=== PATIENT | female | born 1940 | race Native Hawaiian/Other Pacific Islander ===

== ENCOUNTER 2017-08-18 20:50 | Observation (INO) | payer MEDICARE, SELFPAY ==
[2017-08-18 21:04] VITALS: BP 102/60; PULSE 87; RESP 18; TEMP 39.3; O2SAT 93; BMI 25.8
--- NOTE | 2017-08-18 21:53 | DI.RAD.S_ITS ---
PROCEDURE: XR CHEST 1V INDICATIONS: fever TECHNIQUE: One view of the chest was acquired. COMPARISON: [facility], , CHEST 1 VIEW, 10/18/2012, 18:56. FINDINGS: Surgical changes and devices: None. Lungs and pleura: No pleural effusions or pneumothorax. Lungs are clear except for linear scar or atelectasis at the left base laterally.. Mediastinum: Mediastinal contours appear normal. Heart size is normal. Bones and chest wall: No suspicious bony lesions. Overlying soft tissues appear unremarkable. IMPRESSION: Left basilar atelectasis versus scar. Atelectasis can reflect pneumonia. Lungs otherwise clear with no additional consolidation. Dictated by: Chi Yan M.D. on 08/19/2017 at 7:46 Approved by: Chi Yan M.D. on 08/19/2017 at 7:47
--- NOTE | 2017-08-18 22:07 | DI.CT.S_ITS ---
PROCEDURE: CT HEAD/BRAIN WO CON INDICATIONS: fall w/ head strike and neck pain TECHNIQUE: Noncontrast 4.5 mm thick angled axial sections acquired from the foramen magnum to the vertex, with coronal and sagittal reformats. For radiation dose reduction, the following was used: automated exposure control, adjustment of mA and/or kV according to patient size. COMPARISON: None. FINDINGS: Preliminary report by make up editor radiology Image quality: Excellent. CSF spaces: Basal cisterns are patent. No extra-axial fluid collections. The ventricles are symmetric in size and shape. Brain: No intracranial bleeds or masses. There is cerebral volume loss for age, with resultant ventricular and sulcal prominence. There are periventricular and deep white matter chronic small vessel ischemic changes. There is intracranial internal carotid artery atherosclerosis. Skull and face: Calvarium and visualized facial bones appear intact, without suspicious lesions. Sinuses: Visualized sinuses and mastoids are clear. IMPRESSION: 1. No acute intracranial abnormality. 2. Age-related atrophy and chronic deep white matter ischemic changes. Findings are concordant with the preliminary report. Dictated by: Chi Yan M.D. on 08/19/2017 at 8:13 Approved by: Chi Yan M.D. on 08/19/2017 at 8:16
--- NOTE | 2017-08-18 22:07 | DI.CT.S_ITS ---
PROCEDURE: CT CERVICAL SPINE WO CON INDICATIONS: fall w/ head strike TECHNIQUE: Noncontrast 3 mm thick sections acquired from the skull base to the T4 level. Sagittal and coronal reformats were then constructed. For radiation dose reduction, the following was used: automated exposure control, adjustment of mA and/or kV according to patient size. COMPARISON: None. FINDINGS: Preliminary report by hourly shift radiology Image quality: Excellent. Bones: Straightening of cervical lordosis may be positional or related to muscle spasm. Slight anterolisthesis at C2-3. No fractures or dislocations. Visualized superior ribs are intact. Degenerative facet disease C1 to, right greater than left. Disc degeneration and spondylosis C4-5, C5-6 and C6-7. Soft tissues: Prevertebral soft tissues are normal in thickness. No paravertebral hematomas. No apical pneumothoraces. IMPRESSION: 1. Loss of cervical lordosis. 2. No fracture. Slight anterolisthesis C2-3. 3. Degenerative cervical disc disease, spondylosis and facet arthropathy. Findings are concordant with the preliminary report. Dictated by: Chi Yan M.D. on 08/19/2017 at 8:16 Approved by: Chi Yan M.D. on 08/19/2017 at 8:20
--- NOTE | 2017-08-18 22:07 | DI.CT.S_ITS ---
PROCEDURE: CT ABDOMEN PELVIS WO CON INDICATIONS: fever with flank pain and history of stones TECHNIQUE: Noncontrast 5 mm thick sections acquired from the diaphragms to the symphysis. 5 mm coronal and sagittal reformats were then performed. For radiation dose reduction, the following was used: automated exposure control, adjustment of mA and/or kV according to patient size. COMPARISON: [facility], CT, KIDNEY/ URETER/BLADDER, 02/16/2017, 10:43. FINDINGS: Image quality: Excellent. ABDOMEN: Lung bases: Lung bases are clear. Heart size is normal. Solid organs: Liver is normal in size. Gallbladder is contracted. Pancreas is normal in contours. Spleen is normal in size. No adrenal nodules. Bilateral nephrolithiasis again noted. The right kidney appears enlarged compared to prior exam and there is mild dilatation of the intrarenal collecting system. The right ureter appears normal in caliber and no calcified ureteral calculus seen. There is a small rounded calcification in the right hemipelvis that is unchanged from the previous exam. No stones seen within the urinary bladder. Peritoneum and bowel: Unenhanced bowel loops demonstrate normal wall thickness and caliber. No evidence of appendicitis. Colonic diverticulosis is again noted without CT evidence of diverticulitis. No free fluid or air. Nodes and vessels: No retroperitoneal or mesenteric adenopathy by size criteria. Aorta and inferior vena cava are normal in caliber. Miscellaneous: No ventral hernias. PELVIS: Genitourinary: Bladder wall thickness is normal. Uterus and adnexa are unremarkable. Miscellaneous: No inguinal hernias or adenopathy. Bones: No suspicious bony lesions. Disc degeneration L4-5 and L5-S1. No vertebral body compression fractures. IMPRESSION: 1. Exam is limited by absence of intravenous contrast. 2. Right kidney appears mildly enlarged and hydronephrotic without evidence of obstructing calculi. This could be a result of recently passed stone. With history of fever, possibility of pyelonephritis is suggested. 3. Colonic diverticulosis as before. 4. Bilateral nephrolithiasis. Findings are concordant with the preliminary report. Dictated by: Chi Yan M.D. on 08/19/2017 at 8:21 Approved by: Chi Yan M.D. on 08/19/2017 at 8:29
--- NOTE | 2017-08-18 22:38 | PC.NURSE ---
Attempted PIV placement, unsuccessful. Primary RN notified.
[2017-08-18] MEDS: SODIUM CHLORIDE 0.9% 1,000 ML 1000 ML IV (22:59)
[2017-08-18 23:08] VITALS: PULSE 66; O2SAT 93
[2017-08-18] MEDS: PIPERACILLIN-TAZO 4.5 GM/100 ML FROZ.PIGGY IV (23:24)
[2017-08-18 23:25] VITALS: TEMP 37
[2017-08-18 23:26] LABS: INR 1.2 (0.9-1.3); Prothrombin Time 12.8 SECONDS (10.1-12.7)
[2017-08-18 23:31] LABS: Add Manual Diff / Slide Review NO; Basophils Percent Auto 0.1 % (0-2); Eosinophils Percent Auto 0.1 % (2-4); Hematocrit 36.9 % (36-46); Hemoglobin 12.6 g/dL (12.0-16.0); Lymphocytes Percent Auto 7.2 % (25-40); Mean Corpuscular HGB Conc 34.1 % (30-36); Mean Corpuscular Hemoglobin 31.1 PG (26-34); Mean Corpuscular Volume 91.2 fL (80-100); Monocytes Percent Auto 6.2 % (3-14); Neutrophils Absolute Auto 11300 /uL (3000-5900); Neutrophils Percent Auto 86.4 % (50-75); Platelet Count 176 X10^3/uL (150-400); Red Blood Cell Count 4.05 X10^6/uL (4.0-5.2); Red Cell Distribution Width 13.9 % (11.6-14.8)
[2017-08-18 23:33] LABS: Lactate (Lactic Acid) 0.9 mmol/L (0.7-2.1)
[2017-08-18 23:35] LABS: Bilirubin Total 0.8 mg/dL (0.2-1.3); Blood Urea Nitrogen 17 mg/dL (7-17); Calcium 9.8 mg/dL (8.4-10.2); Carbon Dioxide 30 mmol/L (22-32); Chloride 94 mmol/L (98-107); Estimated Glomerular Filt Rate 54.2 mL/min (>60); Glucose 119 mg/dL (80-110); HEMOLYSIS < 15 (0-50); Lipase 15 U/L (23-300); Potassium 2.8 mmol/L (3.4-5.1); Sodium 133 mmol/L (137-145)
[2017-08-18 23:47] LABS: Troponin I < 0.012 ng/mL (0.01-0.034)
[2017-08-19] VITALS (9 sets, daily range): BP systolic 75–137; BP diastolic 49–95; PULSE 63–87; RESP 16–18; TEMP 36.6–38.2; O2SAT 93–98; BMI 27.1
--- NOTE | 2017-08-19 00:06 | PC.NURSE ---
L ac IV site appears to be infiltrated with small swelling, cool to touch and leaking IVF. Pt denies pain on the site.
[2017-08-19 00:07] LABS: Thyroid Stimulating Hormone 2.26 uIU/mL (0.47-4.68)
--- NOTE | 2017-08-19 00:08 | PC.NURSE ---
informed on pt's new c/o-chest pressure radiating to neck. EKG obtained and pt placed on cont security monitor-SR. New IV started and additional lab drawn and held at this time.
[2017-08-19 00:27] LABS: RBC Urine None Seen (0-5/HPF)
[2017-08-19 00:29] LABS: Bilirubin Urine UA NEGATIVE (NEGATIVE); Color Urine UA YELLOW; Glucose Urine UA NEGATIVE (Normal); Ketones Urine UA NEGATIVE (NEGATIVE); Leukocyte Esterase Urine UA 3+ (NEGATIVE); Nitrite Urine UA POSITIVE (Negative); Occult Blood Urine UA 1+ (Negative); Protein Urine UA NEGATIVE (Negative); Specific Gravity Urine UA <=1.005 (1.000-1.035); Urobilinogen Urine UA 0.2 E.U./dL (0.2)
[2017-08-19 00:31] LABS: Appearance Urine UA Slightly Cloudy
[2017-08-19 00:35] LABS: Squamous Epithelial Cell Urine 0-1 /HPF; WBC Urine 10-30/HPF (0-5/HPF)
[2017-08-19 00:36] LABS: Bacteria Urine Many (>30); Culture Indicated Urine Specimen Cultured
[2017-08-19] MEDS: POTASSIUM CHLORIDE 20 MEQ/15 ML UDC 40 MEQ PO (01:05)
[2017-08-19] MEDS: SODIUM CHLORIDE 0.9% 1,000 ML 1000 ML IV (01:12)
[2017-08-19 01:38] LABS: Lactate (Lactic Acid) 0.8 mmol/L (0.7-2.1)
[2017-08-19] MEDS: MAGNESIUM SULFATE 2 GM/50 ML PIGGYBACK IV (02:10)
[2017-08-19] MEDS: SODIUM CHLORIDE 0.9% 1,000 ML 125 ML IV ×2 (04:40→14:12)
[2017-08-19] MEDS: CEFTRIAXONE 1 GM/50 ML FROZ.PIGGY IV (05:52)
--- NOTE | 2017-08-19 07:57 | PC.NURSE ---
Report rec'd from LEATHA Meadows in ED at 0335. Pt arrived to unit via stretcher at 0400. Pt able to indep move from stretcher to bed. Denies chest pain, mild tolerable nausea. IVF started to left hand PIV. Pt given water, tolerating well. Temp 100.7F upon arrival to unit. Pt placed on Telemetry monitoring per order and continuous O2 monitoring. Pt A&OX4, drowsy, arousable and able to answer questions appropriately. C/O neck soreness, pt able to reposition self in bed and support with pillows. Left elbow purple bruise, small noted with laceration. High fall risk precautions in place, bed alarm on. Pt aware of safety precautions.
[2017-08-19] MEDS: CEFTRIAXONE 2 GM/50 ML FROZ.PIGGY IV (11:37)
--- NOTE | 2017-08-19 14:00 | P.HP_ITS ---
History of Present Illness Date Patient Seen: 08/19/17 Time Patient Seen: 13:49 Chief complaint: FEVER, FELL OFF TOILET , HIT HEAD Narrative: Patient is a 76-year-old white female patient of [facility] Newsome. Apparently with long history of kidney stones. Patient was in her usual state of health until Thursday when she developed a kidney stone which eventually passed. She usually is quite tired after this and she was feeling that way on Thursday but otherwise had been doing well. Since Thursday she went to work was feeling well much improved and then on Thursday just felt weak. Was starting to get some fevers and chills. No nausea or vomiting. No abdominal pain. No flank pain. Maybe was having some burning with urination but nothing significant. Extremities without cyanosis clubbing edema. Patient apparently was in the bathroom Thursday night or Thursday afternoon and was getting up off the toilet and had a syncopal episode. Thought she remembers almost everything. Did trip did not have any other changes. Had no headache visual symptoms chest pain shortness of breath palpitations or other change. Folded to the floor hitting her head and her right shoulder. Did not believe she lost consciousness. Contacted her son who eventually came and brought her to the hospital. She continued to have chills but no real other symptoms. Patient has a strong history of recurrent kidney stones which she has been dealing with for many years. Has had a history of previous UTIs. She now is having mostly right shoulder pain with no other significant changes. When patient got to the hospital she started having substernal chest discomfort with a burning that was almost choking her. Did not radiate. Was quite severe. Nothing seemed to make it better or worse. Resolved. No other significant change. Patient otherwise has had no significant new changes or complaints. Past medical history: Hypertension. Hyperlipidemia. Narcolepsy. Overactive bladder. History of neuropathy nondiabetic. History recurrent kidney stones. Hypercalcemia. History of vitamin-D deficiency. Past surgical history appendectomy. Allergies codeine Percocet Percodan Patient History Medical History HTN (hypertension) (Acute) Kidney stones (Acute) Smokeless tobacco use (Acute) Surgical History Hx of appendectomy (Acute) Hx of lithotripsy (Acute) Family & Social History Social History: household members none Prior Living Arrangements House Safety & Behavioral: Feels Safe in Current Yes Environment Been Physically Hurt or No Threatened By a Person Suicidal Ideation Description None Suicide Plan Description No Plan Tobacco & Substance use: Tobacco type cigarettes Smoking Status Current some day smoker alcohol intake never Substance Use Type does not use Meds Home Medications Medication Instructions Recorded Confirmed Type hydrochlorothiazide 25 mg PO QDAY #0 10/18/12 08/19/17 History lisinopril 10 mg PO DAILY 08/19/17 08/19/17 History oxybutynin chloride 5 mg PO BID 08/19/17 08/19/17 History Allergies Allergy/AdvReac Type Severity Reaction Status Date / Time codeine AdvReac Intermediate NAUSEA Verified 08/19/17 00:50 hydromorphone AdvReac Intermediate ITCHING Verified 08/19/17 00:50 oxycodone AdvReac Mild ITCHING Verified 08/19/17 00:50 Review of Systems Review of Systems All systems reviewed & are unremarkable except as noted in HPI and below Exam Vital Signs (past 8 hours): Vital Signs - 8 hr 3 08/19/17 08:00 08/19/17 12:49 Temperature 99.5 F 98.1 F Pulse Rate 72 66 Respiratory Rate 18 18 Blood Pressure 104/57 L 121/65 H Pulse Oximetry 96 96 Pulse Oximetry 96 Oxygen Delivery Method Room Air Narrative Exam Narrative: Alert elderly female in no acute distress I is unremarkable. Mucous membranes without oral abnormality slightly dry. Neck supple without adenopathy JVD or bruits. Lungs are clear. Heart regular rate and rhythm without murmurs clicks rubs or gallops. Chest wall is non tender. Abdomen is soft positive bowel sounds nontender. No flank tenderness. Extremities without cyanosis clubbing edema. Neurologic exam is nonfocal. Psychological exam she is interactive appropriate smiling intermittently if not mildly tired. Objective Imaging CT scan - abdomen: My impression: Slight hydronephrosis of the right kidney but otherwise unremarkable. ECG: No acute changes CT scan - head: My impression: Unremarkable no acute change Labs Result Diagrams: 08/18/17 23:10 08/18/17 23:10 Labs: Laboratory Results - last 24 hr 08/18/17 08/18/17 08/18/17 23:10 23:10 23:10 WBC 13.0 H RBC 4.05 Hgb 12.6 Hct 36.9 MCV 91.2 MCH 31.1 MCHC 34.1 RDW 13.9 Plt Count 176 Neut % (Auto) 86.4 H Lymph % (Auto) 7.2 L [place] % (Auto) 6.2 Eos % (Auto) 0.1 L Baso % (Auto) 0.1 Neut # (Auto) 81312 H PT 12.8 H INR 1.2 Sodium 133 L Potassium 2.8 L Chloride 94 L Carbon Dioxide 30 BUN 17 Creatinine 1.00 Estimated GFR 54.2 L BUN/Creatinine Ratio 17.0 Glucose 119 H Lactate Calcium 9.8 Total Bilirubin 0.8 Troponin I < 0.012 Lipase 15 L Procalcitonin TSH Urine Color Urine Appearance Urine pH Ur Specific [place] Urine Protein Urine Glucose (UA) Urine Ketones Urine Occult Blood Urine Nitrate Urine Bilirubin Urine Urobilinogen Ur Leukocyte Esterase Urine RBC Urine WBC Ur Squamous Epith Cells Urine Bacteria Ur Culture Indicated? Micro UA Comment 08/18/17 08/18/17 08/18/17 23:10 23:10 23:10 WBC RBC Hgb Hct MCV MCH MCHC RDW Plt Count Neut % (Auto) Lymph % (Auto) [place] % (Auto) Eos % (Auto) Baso % (Auto) Neut # (Auto) PT INR Sodium Potassium Chloride Carbon Dioxide BUN Creatinine Estimated GFR BUN/Creatinine Ratio Glucose Lactate 0.9 Calcium Total Bilirubin Troponin I Lipase Procalcitonin 1.90 H TSH 2.26 Urine Color Urine Appearance Urine pH Ur Specific [place] Urine Protein Urine Glucose (UA) Urine Ketones Urine Occult Blood Urine Nitrate Urine Bilirubin Urine Urobilinogen Ur Leukocyte Esterase Urine RBC Urine WBC Ur Squamous Epith Cells Urine Bacteria Ur Culture Indicated? Micro UA Comment 08/19/17 08/19/17 00:18 01:17 WBC RBC Hgb Hct MCV MCH MCHC RDW Plt Count Neut % (Auto) Lymph % (Auto) [place] % (Auto) Eos % (Auto) Baso % (Auto) Neut # (Auto) PT INR Sodium Potassium Chloride Carbon Dioxide BUN Creatinine Estimated GFR BUN/Creatinine Ratio Glucose Lactate 0.8 Calcium Total Bilirubin Troponin I Lipase Procalcitonin TSH Urine Color Yellow Urine Appearance Slightly cloudy Urine pH 6.0 Ur Specific [place] <=1.005 Urine Protein Negative Urine Glucose (UA) Negative Urine Ketones Negative Urine Occult Blood 1+ H Urine Nitrate Positive H Urine Bilirubin Negative Urine Urobilinogen 0.2 Ur Leukocyte Esterase 3+ H Urine RBC None seen Urine WBC 10-30/hpf H Ur Squamous Epith Cells 0-1 /hpf Urine Bacteria Many (>30) H Ur Culture Indicated? Specimen cultured Micro UA Comment Not Reportable Assessment & Plan Plan: Assessment/Plan Narrative: Pyelonephritis. Mildly elevated prolactin. We will repeat now. Elevated white count but feeling better. At this point will continue Rocephin and re- evaluate in a.m.. May be able to go home tomorrow depending on how she feels. Chest pain. Probably GI. Negative troponin negative CPK and EKG unremarkable at this point my recommendation will be to add pantoprazole and see how she does. Dehydration mild. Slow hydration. Re-evaluate in a.m.. Syncopal episode. Probable vasovagal. Certainly doubt seizures or other abnormality. Will follow. CT of head was negative. Hypertension. Stable continue usual medicines. Hyperlipidemia. No treatment at this time. Hypokalemia. Will replace. Recheck a.m. DVT prophylaxis on Lovenox. GI prophylaxis on pantoprazole. Disposition. Overall appears stable. We will see how she does. Re-evaluate in a.m.. May be able to go home depending on how she feels. Quality VTE Deep Vein Thrombosis/Pulmonary Embolism Present on Admission: No
[2017-08-19 14:25] LABS: Add Manual Diff / Slide Review NO; Basophils Percent Auto 0.2 % (0-2); Eosinophils Percent Auto 0.2 % (2-4); Hematocrit 34.5 % (36-46); Hemoglobin 11.8 g/dL (12.0-16.0); Lymphocytes Percent Auto 6.6 % (25-40); Mean Corpuscular HGB Conc 34.3 % (30-36); Mean Corpuscular Hemoglobin 31.5 PG (26-34); Mean Corpuscular Volume 91.8 fL (80-100); Monocytes Percent Auto 5.9 % (3-14); Neutrophils Absolute Auto 7900 /uL (3000-5900); Neutrophils Percent Auto 87.1 % (50-75); Platelet Count 133 X10^3/uL (150-400); Red Blood Cell Count 3.76 X10^6/uL (4.0-5.2); Red Cell Distribution Width 13.9 % (11.6-14.8)
--- NOTE | 2017-08-19 14:39 | CM.DANOTE ---
DCP Assessment: Pt is a 76 yo female, resident of [place]. Pt is under obs for Pyelonephritis. Pt's PCP is BRADY Newsome, Insurance is Medicare/AARP. Reviewed chart. 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 Pt expects to return home, transportation likely via her son. No expected barriers to safe DC home when medically cleared. Following closely for any DC needs or concerns that might arise. ANNE Esteves
[2017-08-19] MEDS: SODIUM CHLORIDE 0.45% 1,000 ML 100 ML IV (14:44)
[2017-08-19] MEDS: POTASSIUM CHLORIDE 20 MEQ TAB 40 MEQ PO ×2 (14:47→18:32)
[2017-08-19] MEDS: ENOXAPARIN 40 MG/0.4 ML SYRINGE SUBCUT (14:47)
[2017-08-19] MEDS: PANTOPRAZOLE 20 MG TABLET PO (14:48)
[2017-08-19] MEDS: hydroCHLOROthiazide 25 MG TABLET PO (14:48)
[2017-08-19 15:09] LABS: Blood Urea Nitrogen 12 mg/dL (7-17); Calcium 8.7 mg/dL (8.4-10.2); Carbon Dioxide 27 mmol/L (22-32); Chloride 102 mmol/L (98-107); Estimated Glomerular Filt Rate > 60.0 mL/min (>60); Glucose 138 mg/dL (80-110); HEMOLYSIS < 15 (0-50); Potassium 2.9 mmol/L (3.4-5.1); Sodium 139 mmol/L (137-145)
[2017-08-19 15:14] LABS: Prolactin 5.9 ng/mL (3.0-18.6)
[2017-08-19] MEDS: OXYBUTYNIN 5 MG TABLET PO (21:21)
[2017-08-19] MEDS: ACETAMINOPHEN 325 MG TABLET 650 MG PO (22:39)
[2017-08-20] VITALS (7 sets, daily range): BP systolic 109–134; BP diastolic 49–81; PULSE 48–60; RESP 12–18; TEMP 36.4–36.8; O2SAT 93–98
[2017-08-20] MEDS: SODIUM CHLORIDE 0.45% 1,000 ML 100 ML IV (01:44)
[2017-08-20] MEDS: ACETAMINOPHEN 325 MG TABLET 650 MG PO ×4 (04:38→22:00)
--- NOTE | 2017-08-20 05:51 | ED.FEVER ---
HPI - Fever General Chief Complaint: Fever Stated Complaint: FEVER, FELL OFF TOILET , HIT HEAD Time Seen by Provider: 08/18/17 21:52 History of Present Illness HPI Narrative: HPI 76-year-old female with history of recurrent ureterolithiasis (reportedly requiring prior stents, lithotripsy, and percutaneous drains) presents with poorly characterize flank pain, fever, and weakness; patient attempted to stand from the toilet, had a presyncopal or syncopal period and regained consciousness as she was falling and struck the side of her head and endorses mild ongoing pain. Also endorses a cough of 2 to 3 days duration. M/S/F/SocHx notable for: please see HPI; remainder reviewed with patient and in chart. ROS: Negative constitutional, eye, cardiovascular, pulmonary, GI, , MSK, skin, neurologic, psychiatric, endocrine unless noted in the HPI. Exam Gen: pleasant, uncomfortable appearing, not in extremis, non-toxic appearance.. HEENT: NC, AT, PEERL, EOMI, neck supple. Resp: Clear to auscultation bilaterally, normal work of breathing, no accessory muscle usage. Card: Regular rate and rhythm with no murmurs, rubs, or gallops, extremities warm and well perfused. GI: Non-tender to palpation throughout all quadrants, no focal tenderness at McBurney's point, negative Loera's sign, non-distended, no rebound or guarding. : mild right CVA tenderness percussion, no left CVA terms percussion, no suprapubic tenderness to percussion. MSK: No visible deformities, strength and tone without visually appreciable deficit. Skin: Normal color, no petechiae, buttocks without pressure ulcers, palms and soles visually normal, no further visible lesions. Neuro: AOx3, no facial asymmetry, vision and hearing WNL. Psych: Mood and affect appropriate. Labs / Imaging (pertinent): WBC 13.0, Hb 12.6, PLT 176, PT/INR 1.2, Na 133, K 2.8, Bilirubin 0.8, Lactate 0.9, lactic (repeat) 0.8, troponin <0.012, lipase 15, procalcitonin 1.90. UA: negative bacteria, negative nitrites, negative leukocyte esterase, 0 squamous epithelial cells. CXR: questionable left lower lobe infiltrate, radiologist read pending. EKG: SR at [address]-segment elevations or depressions, T-wave inversions or new LBBB. CT head: no acute intracranial abnormalities. CT C-spine: no evidence of fracture or subluxation. CT abdomen/pelvis: right renal pelviciectasis possibly minimal hydronephrosis and perinephric stranding, can be seen with recent passage of calculus right kidney. Small nonvisualized versus non-opaque calculus or other processes such as acute pyelonephritis entirely excluded. Bilateral nephrolithiasis. Colonic diverticulosis. MDM Previous chart, nursing note, labs, imaging, and vitals reviewed. A: 76-year-old female with history of recurrent ureterolithiasis (reportedly requiring prior stents, lithotripsy, and percutaneous drains) presents with poorly characterize flank pain, fever, and weakness; patient attempted to stand from the toilet, had a presyncopal or syncopal period and regained consciousness as she was falling and struck the side of her head and endorses mild ongoing pain. Evaluation: Patient meets CMS sepsis screening guidelines. Infectious Source: * Pulmonary: possible left lower lobe infiltrate. However this is tentative at the present time. * Urine: UA consistent with infection, given history of stones a CT was obtained, this is consistent with pyelonephritis. Suspect this is the cause of the patient's fever and fluid responsive hypotension. * Skin: Consider a cutaneous source unlikely given absence of significant infection appreciated on exam. * ICE SKATING INSTRUCTOR: Doubt given the lack of meningismus, petechia, and the overall clinical presentation. * Abdomen: Doubt given the non-tender abdomen and an alternate source. * Spine: Given the absence of back pain and an alternate source further investigation for possible epidural abscess, spinal osteomyelitis, or discitis are not currently warranted. * Lines: Patient without indwelling lines/ports. Resuscitation: * Blood cultures, 30 cc/kg NS fluid bolus, and Zosyn ordered with the initial evaluation. * P.o. potassium and IV magnesium given. Disposition: admitted for further care. Impression: pyelonephritis, sepsis, hypokalemia (please reference below for remainder of encounter information) Critical Care Time Organ system(s): Cardiopulmonary, vascular, ICE SKATING INSTRUCTOR, Renal Intervention: Assessment of the patient, interpretation of studies, communication related to patient care. Time: 30 minutes were spent directly related to patient care exclusive of separately billed procedures The patient is also without evidence of pancreatitis (lipase within clinically acceptable limits), adrenal insufficiency is tentatively considered unlikely as there is no evidence of chronic steroid use, no known adrenal insufficiency and the patient has been without refractory hypotension. Thyroid disease was considered, given the absence of known thyroid disease or goiter on exam, and a tentatively explaining etiology for the patient?s presentation further investigation is not currently indicated. Ingestion/OD are felt to be unlikely given history, absence of significant mydriasis, and lack of appreciated clonus or hyperreflexia, as well as an alternate explaining etiology.The possibility of alcohol, benzodiazepine, opiate withdrawal were considered and while history is limited at this point these do not appear to be contributing. Related Data Home Medications Medication Instructions Recorded Confirmed hydrochlorothiazide 25 mg PO QDAY #0 10/18/12 08/19/17 lisinopril 10 mg PO DAILY 08/19/17 08/19/17 oxybutynin chloride 5 mg PO BID 08/19/17 08/19/17 Allergies Allergy/AdvReac Type Severity Reaction Status Date / Time codeine AdvReac Intermediate NAUSEA Verified 08/19/17 00:50 hydromorphone AdvReac Intermediate ITCHING Verified 08/19/17 00:50 oxycodone AdvReac Mild ITCHING Verified 08/19/17 00:50 [facility] Medical History HTN (hypertension) (Acute) Kidney stones (Acute) Smokeless tobacco use (Acute) Surgical History Hx of appendectomy (Acute) Hx of lithotripsy (Acute) Social History household members: none Smoking Status: Current some day smoker alcohol intake: never Exam Initial Vital Signs Initial Vital Signs: Vital Signs Temperature 102.7 F H 08/18/17 21:04 Pulse Rate 87 08/18/17 21:04 Respiratory Rate 18 08/18/17 21:04 Blood Pressure 102/60 08/18/17 21:04 Pulse Oximetry 93 08/18/17 21:04 Course Orders Ordered: Acetaminophen (Tylenol) 650 mg PO Q6HR PRN PRN Reason: As Needed for Fever/Mild Pain Last Admin: 08/20/17 04:38 Dose: 650 mg Admin: 08/19/17 22:39 Dose: 650 mg Enoxaparin Sodium (Lovenox) 40 mg SUBCUT DAILY [facility] Last Admin: 08/19/17 14:47 Dose: 40 mg Hydrochlorothiazide (Hydrochlorothiazide) 25 mg PO DAILY [facility] Last Admin: 08/19/17 14:48 Dose: 25 mg Ceftriaxone Sodium/Dextrose (Rocephin) 2 gm in 50 mls @ 100 mls/hr IV Q24H [facility] Last Infusion: 08/19/17 12:20 Dose: 100 mls/hr Admin: 08/19/17 11:37 Dose: 100 mls/hr Sodium Chloride (Normal Saline 0.45%) 1,000 mls @ 100 mls/hr IV CONT MARTHA Last Admin: 08/20/17 01:44 Dose: 100 mls/hr Infusion: 08/20/17 00:44 Dose: 100 mls/hr Admin: 08/19/17 14:44 Dose: 100 mls/hr Lisinopril (Zestril) 10 mg PO DAILY MARTHA Oxybutynin (Ditropan) 5 mg PO BID [facility] Last Admin: 08/19/17 21:21 Dose: 5 mg Potassium Chloride (Klor-Con M20) 40 meq PO BIDWM MARTHA Last Admin: 08/19/17 18:32 Dose: 40 meq Admin: 08/19/17 14:47 Dose: 40 meq Discontinued Medications Piperacillin/Tazobactam/Dextrose (Zosyn) 4.5 gm in 100 mls @ 200 mls/hr IV NOW ONE Stop: 08/18/17 22:22 Last Infusion: 08/19/17 00:50 Dose: 0 mls/hr Admin: 08/18/17 23:24 Dose: 200 mls/hr Sodium Chloride (Normal Saline 0.9%) 2,177.25 mls @ 725.75 mls/hr 30 ml/kg infuse over 3 hr (2177.25 ml) IV CONT MARTHA Last Admin: 08/18/17 22:57 Dose: Sodium Chloride (Normal Saline 0.9%) 1,000 mls @ 1,000 mls/hr IV BOLUS ONE Stop: 08/18/17 23:56 Last Infusion: 08/19/17 01:05 Dose: 0 mls/hr Admin: 08/18/17 22:59 Dose: 1,000 mls/hr Magnesium Sulfate (Magnesium Sulfate) 2 gm in 50 mls @ 25 mls/hr IV NOW ONE Stop: 08/19/17 02:32 Last Infusion: 08/19/17 07:00 Dose: 25 mls/hr Infusion: 08/19/17 02:10 Dose: 25 mls/hr Admin: 08/19/17 02:10 Dose: 25 mls/hr Sodium Chloride (Normal Saline 0.9%) 1,000 mls @ 1,000 mls/hr IV BOLUS ONE Stop: 08/19/17 02:06 Last Infusion: 08/19/17 03:53 Dose: 25 mls/hr Admin: 08/19/17 01:12 Dose: 1,000 mls/hr Sodium Chloride (Normal Saline 0.9%) 500 mls @ 1,000 mls/hr IV BOLUS ONE Stop: 08/19/17 01:36 Last Admin: 08/19/17 04:30 Dose: Not Given Ceftriaxone Sodium/Dextrose (Rocephin) 1 gm in 50 mls @ 100 mls/hr IV Q12HR MARTHA Stop: 08/19/17 07:59 Last Infusion: 08/19/17 06:29 Dose: 100 mls/hr Admin: 08/19/17 05:52 Dose: 100 mls/hr Sodium Chloride (Normal Saline 0.9%) 1,000 mls @ 125 mls/hr IV CONT MARTHA Last Infusion: 08/19/17 14:42 Dose: 125 mls/hr Admin: 08/19/17 14:12 Dose: 125 mls/hr Infusion: 08/19/17 12:40 Dose: 125 mls/hr Admin: 08/19/17 04:40 Dose: 125 mls/hr Pantoprazole Sodium (Protonix) 20 mg PO NOW ONE Stop: 08/19/17 13:48 Last Admin: 08/19/17 14:48 Dose: 20 mg Potassium Chloride (Potassium Chloride) 40 meq PO NOW ONE Stop: 08/19/17 00:34 Last Admin: 08/19/17 01:05 Dose: 40 meq Vital Signs - 8 hr 08/19/17 23:43 08/20/17 02:30 08/20/17 04:52 Temperature 97.8 F 97.6 F Pulse Rate 64 60 Respiratory Rate 18 18 Blood Pressure 137/57 H 132/81 H Pulse Oximetry 95 95 96 MDM - Fever Lab Data Result diagrams: 08/19/17 14:13 08/19/17 14:13 Lab Results 08/18/17 08/18/17 08/18/17 Range/Units 23:10 23:10 23:10 WBC 13.0 H (4.5-11.0) X10^3/uL RBC 4.05 (4.0-5.2) X10^6/uL Hgb 12.6 (12.0-16.0) g/dL Hct 36.9 (36-46) % MCV 91.2 (80-100) fL MCH 31.1 (26-34) PG MCHC 34.1 (30-36) % RDW 13.9 (11.6-14.8) % Plt Count 176 (150-400) X10^3/uL Neut % (Auto) 86.4 H (50-75) % Lymph % (Auto) 7.2 L (25-40) % [place] % (Auto) 6.2 (3-14) % Eos % (Auto) 0.1 L (2-4) % Baso % (Auto) 0.1 (0-2) % Neut # (Auto) 87457 H (4508-1596) /uL PT 12.8 H (10.1-12.7) SECONDS INR 1.2 (0.9-1.3) Sodium 133 L (137-145) mmol/L Potassium 2.8 L (3.4-5.1) mmol/L Chloride 94 L (98-107) mmol/L Carbon Dioxide 30 (22-32) mmol/L BUN 17 (7-17) mg/dL Creatinine 1.00 (0.52-1.04) mg/dL Estimated GFR 54.2 L (>60) mL/min BUN/Creatinine Ratio 17.0 (6-22) Glucose 119 H (80-110) mg/dL Lactate (0.7-2.1) mmol/L Calcium 9.8 (8.4-10.2) mg/dL Total Bilirubin 0.8 (0.2-1.3) mg/dL Troponin I < 0.012 (0.01-0.034) ng/mL Lipase 15 L (23-300) U/L Procalcitonin (<0.5) ng/mL TSH (0.47-4.68) uIU/mL Prolactin (3.0-18.6) ng/mL Urine Color Urine Appearance Urine pH (4.5-8.0) Ur Specific [place] (1.000-1.035) Urine Protein (Negative) Urine Glucose (UA) (Normal) g/dL Urine Ketones (NEGATIVE) Urine Occult Blood (Negative) Urine Nitrate (Negative) Urine Bilirubin (NEGATIVE) Urine Urobilinogen (0.2) E.U./dL Ur Leukocyte Esterase (NEGATIVE) Urine RBC (0-5/HPF) Urine WBC (0-5/HPF) Ur Squamous Epith Cells Urine Bacteria (None) Ur Culture Indicated? Micro UA Comment 08/18/17 08/18/17 08/18/17 Range/Units 23:10 23:10 23:10 WBC (4.5-11.0) X10^3/uL RBC (4.0-5.2) X10^6/uL Hgb (12.0-16.0) g/dL Hct (36-46) % MCV (80-100) fL MCH (26-34) PG MCHC (30-36) % RDW (11.6-14.8) % Plt Count (150-400) X10^3/uL Neut % (Auto) (50-75) % Lymph % (Auto) (25-40) % [place] % (Auto) (3-14) % Eos % (Auto) (2-4) % Baso % (Auto) (0-2) % Neut # (Auto) (9995-0183) /uL PT (10.1-12.7) SECONDS INR (0.9-1.3) Sodium (137-145) mmol/L Potassium (3.4-5.1) mmol/L Chloride (98-107) mmol/L Carbon Dioxide (22-32) mmol/L BUN (7-17) mg/dL Creatinine (0.52-1.04) mg/dL Estimated GFR (>60) mL/min BUN/Creatinine Ratio (6-22) Glucose (80-110) mg/dL Lactate 0.9 (0.7-2.1) mmol/L Calcium (8.4-10.2) mg/dL Total Bilirubin (0.2-1.3) mg/dL Troponin I (0.01-0.034) ng/mL Lipase (23-300) U/L Procalcitonin 1.90 H (<0.5) ng/mL TSH 2.26 (0.47-4.68) uIU/mL Prolactin (3.0-18.6) ng/mL Urine Color Urine Appearance Urine pH (4.5-8.0) Ur Specific [place] (1.000-1.035) Urine Protein (Negative) Urine Glucose (UA) (Normal) g/dL Urine Ketones (NEGATIVE) Urine Occult Blood (Negative) Urine Nitrate (Negative) Urine Bilirubin (NEGATIVE) Urine Urobilinogen (0.2) E.U./dL Ur Leukocyte Esterase (NEGATIVE) Urine RBC (0-5/HPF) Urine WBC (0-5/HPF) Ur Squamous Epith Cells Urine Bacteria (None) Ur Culture Indicated? Micro UA Comment 08/19/17 08/19/17 08/19/17 Range/Units 00:18 01:17 14:13 WBC 9.0 (4.5-11.0) X10^3/uL RBC 3.76 L (4.0-5.2) X10^6/uL Hgb 11.8 L (12.0-16.0) g/dL Hct 34.5 L (36-46) % MCV 91.8 (80-100) fL MCH 31.5 (26-34) PG MCHC 34.3 (30-36) % RDW 13.9 (11.6-14.8) % Plt Count 133 L (150-400) X10^3/uL Neut % (Auto) 87.1 H (50-75) % Lymph % (Auto) 6.6 L (25-40) % [place] % (Auto) 5.9 (3-14) % Eos % (Auto) 0.2 L (2-4) % Baso % (Auto) 0.2 (0-2) % Neut # (Auto) 7900 H (1549-1508) /uL PT (10.1-12.7) SECONDS INR (0.9-1.3) Sodium (137-145) mmol/L Potassium (3.4-5.1) mmol/L Chloride (98-107) mmol/L Carbon Dioxide (22-32) mmol/L BUN (7-17) mg/dL Creatinine (0.52-1.04) mg/dL Estimated GFR (>60) mL/min BUN/Creatinine Ratio (6-22) Glucose (80-110) mg/dL Lactate 0.8 (0.7-2.1) mmol/L Calcium (8.4-10.2) mg/dL Total Bilirubin (0.2-1.3) mg/dL Troponin I (0.01-0.034) ng/mL Lipase (23-300) U/L Procalcitonin (<0.5) ng/mL TSH (0.47-4.68) uIU/mL Prolactin (3.0-18.6) ng/mL Urine Color Yellow Urine Appearance Slightly cloudy Urine pH 6.0 (4.5-8.0) Ur Specific [place] <=1.005 (1.000-1.035) Urine Protein Negative (Negative) Urine Glucose (UA) Negative (Normal) g/dL Urine Ketones Negative (NEGATIVE) Urine Occult Blood 1+ H (Negative) Urine Nitrate Positive H (Negative) Urine Bilirubin Negative (NEGATIVE) Urine Urobilinogen 0.2 (0.2) E.U./dL Ur Leukocyte Esterase 3+ H (NEGATIVE) Urine RBC None seen (0-5/HPF) Urine WBC 10-30/hpf H (0-5/HPF) Ur Squamous Epith Cells 0-1 /hpf Urine Bacteria Many (>30) H (None) Ur Culture Indicated? Specimen cultured Micro UA Comment Not Reportable 08/19/17 08/19/17 Range/Units 14:13 14:13 WBC (4.5-11.0) X10^3/uL RBC (4.0-5.2) X10^6/uL Hgb (12.0-16.0) g/dL Hct (36-46) % MCV (80-100) fL MCH (26-34) PG MCHC (30-36) % RDW (11.6-14.8) % Plt Count (150-400) X10^3/uL Neut % (Auto) (50-75) % Lymph % (Auto) (25-40) % [place] % (Auto) (3-14) % Eos % (Auto) (2-4) % Baso % (Auto) (0-2) % Neut # (Auto) (4817-5280) /uL PT (10.1-12.7) SECONDS INR (0.9-1.3) Sodium 139 (137-145) mmol/L Potassium 2.9 L (3.4-5.1) mmol/L Chloride 102 (98-107) mmol/L Carbon Dioxide 27 (22-32) mmol/L BUN 12 (7-17) mg/dL Creatinine 0.80 (0.52-1.04) mg/dL Estimated GFR > 60.0 (>60) mL/min BUN/Creatinine Ratio 15.0 (6-22) Glucose 138 H (80-110) mg/dL Lactate (0.7-2.1) mmol/L Calcium 8.7 (8.4-10.2) mg/dL Total Bilirubin (0.2-1.3) mg/dL Troponin I (0.01-0.034) ng/mL Lipase (23-300) U/L Procalcitonin (<0.5) ng/mL TSH (0.47-4.68) uIU/mL Prolactin 5.9 (3.0-18.6) ng/mL Urine Color Urine Appearance Urine pH (4.5-8.0) Ur Specific [place] (1.000-1.035) Urine Protein (Negative) Urine Glucose (UA) (Normal) g/dL Urine Ketones (NEGATIVE) Urine Occult Blood (Negative) Urine Nitrate (Negative) Urine Bilirubin (NEGATIVE) Urine Urobilinogen (0.2) E.U./dL Ur Leukocyte Esterase (NEGATIVE) Urine RBC (0-5/HPF) Urine WBC (0-5/HPF) Ur Squamous Epith Cells Urine Bacteria (None) Ur Culture Indicated? Micro UA Comment Discharge Plan Departure Patient Disposition: Admitted as Observation Clinical Impression: Acute UTI Discharge Date/Time: 08/19/17 03:53 Interventions: ED Discharge Assessment Last Done: 08/19/17 03:53 Admit Date/Time: 08/19/17 03:26 Admit Provider: Yolande Hopson
[2017-08-20] MEDS: OXYBUTYNIN 5 MG TABLET PO ×2 (08:43→22:00)
[2017-08-20] MEDS: hydroCHLOROthiazide 25 MG TABLET PO (08:43)
[2017-08-20] MEDS: POTASSIUM CHLORIDE 20 MEQ TAB 40 MEQ PO ×2 (08:43→16:25)
[2017-08-20] MEDS: ENOXAPARIN 40 MG/0.4 ML SYRINGE SUBCUT (08:44)
--- NOTE | 2017-08-20 09:05 | P.PN_ITS ---
Subjective Date Patient Seen: 08/20/17 Time Patient Seen: 09:01 Interval history: Patient is ready to go home. She feels quite certain that everything is better and well enough that she can travel home. Denies any pain or breathing problems appetite has been okay has been up to the bathroom and back without problems. Exam Vital Signs (past 8 hours): Vital Signs - 8 hr 3 08/20/17 02:30 08/20/17 04:52 08/20/17 08:02 Temperature 97.6 F 98 F Pulse Rate 60 48 L Respiratory Rate 18 12 Blood Pressure 132/81 H 109/49 L Pulse Oximetry 95 96 96 3 08/20/17 08:46 Temperature Pulse Rate 48 L Respiratory Rate Blood Pressure 109/49 L Pulse Oximetry Pulse Oximetry 96 Oxygen Delivery Method Room Air Oxygen Flow Rate 0 Narrative Exam Narrative: No obvious distress HEENT unremarkable neck is thad a no CVA tenderness bdomen soft nontender nondistended normoactive bowel tones no organomegaly or mass , chest is clear heart regular without murmur extremities benign. Neurologically normal. Objective Labs Result Diagrams: 08/19/17 14:13 08/19/17 14:13 Labs: Laboratory Results - last 24 hr 08/19/17 08/19/17 08/19/17 14:13 14:13 14:13 WBC 9.0 RBC 3.76 L Hgb 11.8 L Hct 34.5 L MCV 91.8 MCH 31.5 MCHC 34.3 RDW 13.9 Plt Count 133 L Neut % (Auto) 87.1 H Lymph % (Auto) 6.6 L [place] % (Auto) 5.9 Eos % (Auto) 0.2 L Baso % (Auto) 0.2 Neut # (Auto) 7900 H Sodium 139 Potassium 2.9 L Chloride 102 Carbon Dioxide 27 BUN 12 Creatinine 0.80 Estimated GFR > 60.0 BUN/Creatinine Ratio 15.0 Glucose 138 H Calcium 8.7 Prolactin 5.9 Assessment & Plan (1) Hypokalemia: Problem details: Found on admission but not responding readily to oral high replacement. Question of possible low magnesium will check that although she did receive a dose of magnesium in the ER without a lab confirmation. Home meds do include both hydrochlorothiazide and lisinopril, both of which might contribute to this problem. Current visit: Yes Status: Acute (2) Renal lithiasis: Problem details: Recent episode with history of same. No current symptoms. Current visit: Yes Status: Acute (3) Syncope and collapse: Problem details: By report of patient not clear that she lost consciousness but did have injuries that have been evaluated. No evidence of bony injuries and symptoms have improved. Current visit: Yes Status: Acute (4) Volume depletion: Problem details: Largely resolved at this time. Probably mild to begin with. Current visit: Yes Status: Acute (5) Urinary tract infection: Problem details: Found on admission not a lot of clear symptoms it seems. Current visit: Yes Status: Acute (6) Chest pain: Problem details: Thought to be more GI in source cardiac cause largely ruled out. Current visit: Yes Status: Acute (7) Hypertension: Problem details: Historically currently well controlled. Current visit: Yes Status: Acute (8) Hyperlipidemia: Problem details: Historically Current visit: Yes Status: Acute Plan: Assessment/Plan Narrative: Regret that she is really not ready to go home just yet. Will have a lab check magnesium level on spec this morning, will add an IV K rider this morning recheck labs with magnesium in the morning. Will supplement magnesium if the level comes back is low. Encourage up and around today no promises but did suggest that she very likely could go home tomorrow. Quality VTE Deep Vein Thrombosis/Pulmonary Embolism Present on Admission: No
[2017-08-20] MEDS: CEFTRIAXONE 2 GM/50 ML FROZ.PIGGY IV (10:39)
--- NOTE | 2017-08-20 10:42 | CM.DPC ---
DCP Cont: Met w/pt this morning, explained SW role. Pt very eager to leave the hospital and has no stated barriers to safe DC home w/family to transport home. This NURS[employer] SCHOOL TEACHER stayed in room while Dr Chacko came for his visit; it's the plan for pt to remain in the hospital today and tonight, at least according to this morning visit. Potassium and Magnesium levels are Dr Chacko's greates concern today, see prog note for detail. Pt a little frustrated and reiterates she would like to go home. Alexus Childs, ANNE
[2017-08-20] MEDS: POTASSIUM CHLORIDE IN WATER 40 MEQ/400 ML PIGGYBACK 100 MEQ IV (11:16)
[2017-08-20] MEDS: cefUROXime 250 MG TABLET 500 MG PO ×2 (12:14→22:00)
--- NOTE | 2017-08-20 22:57 | PC.NURSE ---
Evening Shift Note A&O, VSS, 98% RA. Pain managed w/ Tylenol. Using call light appropriately, bed alarm on, up w/ SBA. Dc tomorrow if labs WNL.
[2017-08-21 03:06] VITALS: O2SAT 93
[2017-08-21 06:32] LABS: Add Manual Diff / Slide Review NO; Basophils Percent Auto 0.4 % (0-2); Eosinophils Percent Auto 0.6 % (2-4); Hematocrit 37.1 % (36-46); Hemoglobin 12.9 g/dL (12.0-16.0); Lymphocytes Percent Auto 8.7 % (25-40); Mean Corpuscular HGB Conc 34.7 % (30-36); Mean Corpuscular Hemoglobin 31.6 PG (26-34); Monocytes Percent Auto 10.5 % (3-14); Neutrophils Absolute Auto 6700 /uL (3000-5900); Neutrophils Percent Auto 79.8 % (50-75); Platelet Count 189 X10^3/uL (150-400); Red Blood Cell Count 4.08 X10^6/uL (4.0-5.2); Red Cell Distribution Width 13.8 % (11.6-14.8); White Blood Cell Count 8.4 X10^3/uL (4.5-11.0)
[2017-08-21 06:38] LABS: BUN Creatinine Ratio 16.3 (6-22); Blood Urea Nitrogen 13 mg/dL (7-17); Calcium 9.2 mg/dL (8.4-10.2); Carbon Dioxide 28 mmol/L (22-32); Chloride 103 mmol/L (98-107); Estimated Glomerular Filt Rate > 60.0 mL/min (>60); Glucose 117 mg/dL (80-110); HEMOLYSIS < 15 (0-50); Magnesium 1.9 mg/dL (1.6-2.3); Potassium 3.4 mmol/L (3.4-5.1); Sodium 140 mmol/L (137-145)
[2017-08-21 07:35] VITALS: O2SAT 97
[2017-08-21] MEDS: OXYBUTYNIN 5 MG TABLET PO (08:02)
[2017-08-21] MEDS: LISINOPRIL 10 MG TABLET PO (08:02)
[2017-08-21] MEDS: hydroCHLOROthiazide 25 MG TABLET PO (08:02)
[2017-08-21] MEDS: cefUROXime 250 MG TABLET 500 MG PO (08:02)
[2017-08-21] MEDS: POTASSIUM CHLORIDE 20 MEQ TAB 40 MEQ PO (08:02)
[2017-08-21] MEDS: ENOXAPARIN 40 MG/0.4 ML SYRINGE SUBCUT (08:03)
[2017-08-21 08:15] VITALS: BP 130/76; PULSE 65; RESP 18; TEMP 36.5; O2SAT 95
--- NOTE | 2017-08-21 08:26 | PM.DS.1 ---
History of Present Illness Chief complaint: FEVER, FELL OFF TOILET , HIT HEAD Narrative: Patient is a 76-year-old white female patient of Gloria Newsome. Apparently with long history of kidney stones. Patient was in her usual state of health until Thursday when she developed a kidney stone which eventually passed. She usually is quite tired after this and she was feeling that way on Thursday but otherwise had been doing well. Since Thursday she went to work was feeling well much improved and then on Thursday just felt weak. Was starting to get some fevers and chills. No nausea or vomiting. No abdominal pain. No flank pain. Maybe was having some burning with urination but nothing significant. Extremities without cyanosis clubbing edema. Patient apparently was in the bathroom Thursday night or Thursday afternoon and was getting up off the toilet and had a syncopal episode. Thought she remembers almost everything. Did trip did not have any other changes. Had no headache visual symptoms chest pain shortness of breath palpitations or other change. Folded to the floor hitting her head and her right shoulder. Did not believe she lost consciousness. Contacted her son who eventually came and brought her to the hospital. She continued to have chills but no real other symptoms. Patient has a strong history of recurrent kidney stones which she has been dealing with for many years. Has had a history of previous UTIs. She now is having mostly right shoulder pain with no other significant changes. When patient got to the hospital she started having substernal chest discomfort with a burning that was almost choking her. Did not radiate. Was quite severe. Nothing seemed to make it better or worse. Resolved. No other significant change. Patient otherwise has had no significant new changes or complaints. Past medical history: Hypertension. Hyperlipidemia. Narcolepsy. Overactive bladder. History of neuropathy nondiabetic. History recurrent kidney stones. Hypercalcemia. History of vitamin-D deficiency. Past surgical history appendectomy. Allergies codeine Percocet Percodan Discharge Providers Date of admission: 08/19/17 03:26 Primary care physician: BRADY Portillo Consults: 08/19/17 02:41 Consult to Physician Routine Comment: Consulting Provider: Yolande Hopson Reason for consultation: uti, sepsis Has provider been notified: Yes Discharge provider: Ray Power MD Summary Discharge Diagnosis: Hypokalemia Renal lithiasis Pyelonephritis Syncope Right shoulder pain Dehydration Chest pain noncardiac Hypertension Hospital Course: Pyelonephritis. Patient was admitted and begun on Rocephin. 24 hr later was feeling much better. White count was down. Unstable. Feeling remarkably better. Cultures were growing gram-negative bacillus but had not been definitively identified. Will go home on Ceftin since she has been doing well on that and follow up with Dr. Parsons are [place] he can adjust medication as needed. Hypokalemia. Patient was admitted and found to have a low potassium. She was replaced orally and did well. She will home on 7 days of medication be followed as an outpatient with repeat BMP on day of follow-up. Syncopal episode. [place] to be secondary to combination of pyelonephritis dehydration and vasovagal episode. CT of the head was negative on admission cervical spine evaluation was negative and no further workup needs to be done. We followed as an outpatient. Chest pain noncardiac. Negative EKG normal labs stable throughout. Probably GI in nature. Will be followed as outpatient. Dehydration. Mild to moderate. Fluid hydration 0 IV over the 1st 24 hr. Feeling much better. Will go home and be followed from there. Hypertension. Was stable. We will follow. No change in medication. Right shoulder pain status post fall. Much improved on today. Probably muscular. Probably contusion. No further workup will need to be done as long as her shoulder completely resolves normalizes. Really minimal findings on exam. History of kidney stones recurrent. Will need to get set back up with urologist. Will allow follow-up appointment to have set up with Dr. Parsons or C diff. Status at Discharge Functional status at discharge: independent ambulation Overall status at discharge: patient is progressing back to baseline Exam Vital Signs (past 8 hours): Vital Signs - 8 hr 08/21/17 03:06 Pulse Oximetry 93 Pulse Oximetry 93 Oxygen Delivery Method Room Air Oxygen Flow Rate 0 Narrative Exam Narrative: Alert elderly female lying in bed no acute distress HEENT exam unremarkable. Mucous membranes moist. Neck supple without adenopathy JVD or bruits. Full range of motion. She has got some slight tenderness in the right upper back. Much improved from previous exam. Shoulder is unremarkable. Lungs are clear. Heart regular rate and rhythm. No flank pain. Abdomen is soft positive bowel sounds nontender. Extremities without cyanosis clubbing edema. Neurologic exam is unremarkable. Patient is alert smiling and interactive without issues. Objective Labs Result Diagrams: 08/21/17 05:52 08/21/17 05:52 Labs: Laboratory Results - last 24 hr 08/19/17 08/21/17 08/21/17 14:15 05:52 05:52 WBC 8.4 RBC 4.08 Hgb 12.9 Hct 37.1 MCV 91.0 MCH 31.6 MCHC 34.7 RDW 13.8 Plt Count 189 Neut % (Auto) 79.8 H Lymph % (Auto) 8.7 L Rains % (Auto) 10.5 Eos % (Auto) 0.6 L Baso % (Auto) 0.4 Neut # (Auto) 6700 H Sodium 140 Potassium 3.4 Chloride 103 Carbon Dioxide 28 BUN 13 Creatinine 0.80 Estimated GFR > 60.0 BUN/Creatinine Ratio 16.3 Glucose 117 H Calcium 9.2 Magnesium 2.0 1.9 Discharge Plan Discharge Plan Patient Disposition: Home, Self-Care Provider Discharge Instructions Diet: Diet as Tolerated Activity: as tolerated Wound Care Report to your healthcare provider any signs of infection, such as:: chills, fever and increased pain Discharge Data Primary Care Provider: Alexus Thurston Attending Provider: Adonay Tamez Admmoni Date/Time: 08/19/17 03:26 Quality VTE Deep Vein Thrombosis/Pulmonary Embolism Present on Admission: No
--- NOTE | 2017-08-21 09:06 | PC.NURSE ---
PT REPORTS SHE IS STILL LIGHTLY WEAK BUT RETURNING TO BASELINE. PT REQUESTS TO D/C TO HOME. IN FOR ROUNDING D/C TO HOME ORDERED.
--- NOTE | 2017-08-21 12:02 | CM.DPNOTE ---
DC Note: Pt has been DC home today and feels very eager to leave. Met w/pt briefly, she denies needs. Pt's family will call at 1130 to see if they need to head towards the hospital [place] [facility] LEATHA Luna has no concerns about pt's DC home today. FAISAL
== END 2017-08-21 11:15 | disposition home or self-care (01) ==
LOC: ED 08-19 03:08 → AC 08-19 03:27
PROVIDERS: Family Medicine; Admitting Provider Internal Medicine; Emergency Provider Emergency Medicine; Family Provider Nurse Practitioner Family; PCP Nurse Practitioner Family; Visit Provider Family Medicine
DX: E87.6 Hypokalemia (principal); N20.0 Calculus of kidney; R55 Syncope and collapse; N39.0 Urinary tract infection, site not specified; R07.9 Chest pain, unspecified; I10 Essential (primary) hypertension; E78.5 Hyperlipidemia, unspecified; R50.9 Fever, unspecified; N12 Tubulo-interstitial nephritis, not specified as acute or chronic; E86.0 Dehydration; W18.12XA Fall from or off toilet with subsequent striking against object, initial encounter
CPT/HCPCS: 36415; 36591; 36592; 70450; 71045; 72125; 74176; 80048; 81001; 82247; 83605; 83690; 83735; 84145; 84146; 84443; 84484; 85025; 85610; 87040; 87077; 87086; 87186; 93005; 93010; 96365; 96366; 96367; 99285; G0378; J0696; J1650; J2543; J7050

== ENCOUNTER 2017-10-12 11:19 | Emergency (ER) | payer MEDICARE, SELFPAY ==
[2017-08-19 04:11] VITALS: BMI 27.1
[2017-10-12] VITALS (21 sets, daily range): BP systolic 76–164; BP diastolic 43–72; PULSE 95–131; RESP 17–38; TEMP 36.3–39.9; O2SAT 89–97
--- NOTE | 2017-10-12 12:09 | ED.NAVMDI ---
HPI - Nausea/Vomiting/Diarrhea <BRADY Martinez - Last Filed: 10/12/17 22:20> General Chief complaint: Nausea/Vomiting/Diarrhea Stated complaint: STATES PASSING KIDNEY STONES Time Seen by Provider: 10/12/17 12:09 Source: patient Mode of arrival: ambulatory Limitations: no limitations History of Present Illness HPI Narrative: 76-year-old female with history of nephrolithiasis here for complaint of having bilateral lower abdominal pain and lower back pain. She is concerned she may be passing a stone. She also reports having nausea and vomiting. All her symptoms started last night. She denies any fevers or chills. She reports last bowel movement was last night and was unremarkable. She denies any urinary symptoms. Decreased p.o. intake due to nausea and vomiting. She reports having several episodes of vomiting today. She denies any trauma to the abdomen. She is ambulatory into the emergency room. No other concerns or complaints. MD complaint: nausea, vomiting and abdominal pain Related Data Home Medications Medication Instructions Recorded Confirmed hydrochlorothiazide 25 mg PO QDAY #0 10/18/12 10/12/17 oxybutynin chloride 5 mg PO BID 08/19/17 10/12/17 amlodipine 5 mg PO DAILY 10/12/17 10/12/17 hydrocodone-acetaminophen 1 tab PO Q4H PRN 10/12/17 10/12/17 lisinopril 20 mg PO DAILY 10/12/17 10/12/17 tamsulosin 0.4 mg PO DAILY 10/12/17 10/12/17 Allergies Allergy/AdvReac Type Severity Reaction Status Date / Time codeine AdvReac Intermediate NAUSEA Verified 08/19/17 00:50 hydromorphone AdvReac Intermediate ITCHING Verified 08/19/17 00:50 oxycodone AdvReac Mild ITCHING Verified 08/19/17 00:50 Review of Systems <BRADY Martinez - Last Filed: 10/12/17 22:20> Constitutional Denies chills, Denies fever(s), Denies lethargy and Denies weakness Eyes Denies change in vision, Denies eye discharge, Denies irritation and Denies loss of vision ENT Ears, Nose, Mouth, and Throat: Denies change in voice, Denies neck pain and Denies sore throat Cardiovascular Denies chest pain, Denies irregular heart rhythm, Denies lightheadedness, Denies palpitations, Denies dyspnea, Denies dyspnea on exertion and Denies orthopnea Respiratory Denies cough, Denies dyspnea, Denies dyspnea on exertion and Denies wheezing Gastrointestinal Gastrointestinal: Reports abdominal pain, Reports nausea and Reports vomiting Genitourinary Denies hematuria, Denies flank pain, Denies urinary incontinence and Denies urinary urgency Musculoskeletal Denies neck pain Integumentary/Breasts Denies pruritus, Denies erythema, Denies rash and Denies wounds Neurologic Denies confusion, Denies loss of vision and Denies weakness Psychiatric Denies anxiety, Denies confusion, Denies depression, Denies homicidal ideation and Denies suicidal ideation Endocrine Denies palpitations Hematologic/Lymphatic Denies easy bruising Allergic/Immunologic Denies wheezing Exam <BRADY Martinez - Last Filed: 10/12/17 22:20> Initial Vital Signs Initial Vital Signs: Vital Signs Temperature 97.4 F L 10/12/17 11:22 Pulse Rate 117 H 10/12/17 11:22 Respiratory Rate 30 H 10/12/17 11:22 Blood Pressure 140/70 H 10/12/17 11:22 Pulse Oximetry 96 10/12/17 11:22 Const General: cooperative and well developed Nutritional Appearance: well nourished Orientation: alert, awake, oriented x3 and not confused [facility] Mouth: oral mucosae normal and moist mucous membranes Eyes Conjunctivae: conjunctivae normal Sclera: sclerae normal Pupils: PERRL EOM: EOM intact bilaterally Resp Effort & Inspection: normal respiratory effort, able to speak in complete sentences, no respiratory distress and no use of accessory muscles Auscultation: clear to auscultation bilaterally, no rales, no rhonchi and no wheezes Cardio Rate: regular rate Rhythm: regular rhythm Heart Sounds: no click, no gallops, no murmurs and no rubs Pulses: normal peripheral pulses GI Inspection: non-distended Palpation: soft, no hepatosplenomegaly, No guarding, No pulsatile mass and tender (Tender bilateral lower abdomen) Auscultation: normal bowel sounds General: No CVA tenderness Skin General: no rashes or lesions noted, No jaundice and No petechiae Neuro General: alert, oriented x3, gait normal and no focal motor deficits Speech: speech normal <Yadira Medley DO - Last Filed: 10/13/17 06:39> Initial Vital Signs Initial Vital Signs: Vital Signs Temperature 97.4 F L 10/12/17 11:22 Pulse Rate 117 H 10/12/17 11:22 Respiratory Rate 30 H 10/12/17 11:22 Blood Pressure 140/70 H 10/12/17 11:22 Pulse Oximetry 96 10/12/17 11:22 Course <BRADY Martinez - Last Filed: 10/12/17 22:20> Orders Ordered: ED Orders 10/13/17 14:14 Gram Stain Pos BC Stat Discontinued Medications Acetaminophen (Tylenol) 975 mg PO NOW ONE Stop: 10/12/17 20:50 Last Admin: 10/12/17 21:13 Dose: 975 mg Hydromorphone HCl (Dilaudid) 0.5 mg IV NOW ONE Stop: 10/12/17 20:12 Last Admin: 10/12/17 20:13 Dose: 0.5 mg Sodium Chloride (Normal Saline 0.9%) 1,000 mls @ 1,000 mls/hr IV BOLUS ONE Stop: 10/12/17 13:17 Last Infusion: 10/12/17 15:11 Dose: 0 mls/hr Admin: 10/12/17 13:08 Dose: 1,000 mls/hr Sodium Chloride (Normal Saline 0.9%) 1,000 mls @ 1,000 mls/hr IV BOLUS ONE Stop: 10/12/17 14:56 Last Infusion: 10/12/17 15:12 Dose: 0 mls/hr Admin: 10/12/17 14:00 Dose: 1,000 mls/hr Ceftriaxone Sodium/Dextrose (Rocephin) 2 gm in 50 mls @ 100 mls/hr IV NOW ONE Stop: 10/12/17 16:17 Last Infusion: 10/12/17 16:34 Dose: 0 mls/hr Admin: 10/12/17 15:59 Dose: 100 mls/hr Lactated Ringer's (Lactated Ringers) 500 mls @ 1,000 mls/hr IV BOLUS ONE Stop: 10/12/17 16:18 Last Admin: 10/12/17 18:56 Dose: Not Given Lactated Ringer's (Lactated Ringers) 1,000 mls @ 150 mls/hr IV CONT MARTHA Last Infusion: 08/13/18 18:54 Dose: 0 mls/hr Infusion: 10/12/17 17:40 Dose: 1,000 mls/hr Admin: 10/12/17 15:53 Dose: 150 mls/hr Lactated Ringer's (Lactated Ringers) 1,000 mls @ 200 mls/hr IV CONT MARTHA Last Infusion: 10/12/17 21:28 Dose: 200 mls/hr Admin: 10/12/17 17:40 Dose: 200 mls/hr Ondansetron HCl (Zofran) 4 mg IV NOW ONE Stop: 10/12/17 12:19 Last Admin: 10/12/17 13:08 Dose: 4 mg Ondansetron HCl (Zofran) 4 mg IV NOW ONE Stop: 10/12/17 21:25 Last Admin: 10/12/17 21:28 Dose: 4 mg Potassium Chloride (Klor-Con M20) 40 meq PO NOW ONE Stop: 10/12/17 14:19 Last Admin: 10/12/17 15:37 Dose: 40 meq Tamsulosin HCl (Flomax) 0.4 mg PO NOW ONE Stop: 10/12/17 14:44 Last Admin: 10/12/17 15:37 Dose: 0.4 mg Vital Signs - 8 hr 10/12/17 15:00 10/12/17 15:10 10/12/17 15:14 Temperature Pulse Rate 101 H 99 H 101 H Respiratory Rate 19 27 H 17 Blood Pressure [Left Arm] 85/72 L 80/55 L 83/55 L Pulse Oximetry 96 95 95 10/12/17 15:30 10/12/17 16:00 10/12/17 16:20 Temperature Pulse Rate 103 H 101 H 100 H Respiratory Rate 29 H 32 H 32 H Blood Pressure [Left Arm] 78/43 L 85/51 L 88/56 L Pulse Oximetry 92 95 10/12/17 16:30 10/12/17 16:40 10/12/17 17:12 Temperature Pulse Rate 104 H 102 H 100 H Respiratory Rate 30 H 32 H 30 H Blood Pressure [Left Arm] 88/56 L 89/54 L 77/49 L Pulse Oximetry 97 10/12/17 17:37 10/12/17 19:36 10/12/17 20:41 Temperature 103.9 F H Pulse Rate 100 H 99 H 131 H Respiratory Rate 38 H 23 32 H Blood Pressure [Left Arm] 88/54 L 90/71 164/69 H Pulse Oximetry 94 97 96 10/12/17 21:13 Temperature 103.5 F H Pulse Rate Respiratory Rate Blood Pressure [Left Arm] Pulse Oximetry <Yadira Medley, - Last Filed: 10/13/17 06:39> Orders Ordered: ED Orders 10/13/17 14:14 Gram Stain Pos BC Stat Discontinued Medications Acetaminophen (Tylenol) 975 mg PO NOW ONE Stop: 10/12/17 20:50 Last Admin: 10/12/17 21:13 Dose: 975 mg Hydromorphone HCl (Dilaudid) 0.5 mg IV NOW ONE Stop: 10/12/17 20:12 Last Admin: 10/12/17 20:13 Dose: 0.5 mg Sodium Chloride (Normal Saline 0.9%) 1,000 mls @ 1,000 mls/hr IV BOLUS ONE Stop: 10/12/17 13:17 Last Infusion: 10/12/17 15:11 Dose: 0 mls/hr Admin: 10/12/17 13:08 Dose: 1,000 mls/hr Sodium Chloride (Normal Saline 0.9%) 1,000 mls @ 1,000 mls/hr IV BOLUS ONE Stop: 10/12/17 14:56 Last Infusion: 10/12/17 15:12 Dose: 0 mls/hr Admin: 10/12/17 14:00 Dose: 1,000 mls/hr Ceftriaxone Sodium/Dextrose (Rocephin) 2 gm in 50 mls @ 100 mls/hr IV NOW ONE Stop: 10/12/17 16:17 Last Infusion: 10/12/17 16:34 Dose: 0 mls/hr Admin: 10/12/17 15:59 Dose: 100 mls/hr Lactated Ringer's (Lactated Ringers) 500 mls @ 1,000 mls/hr IV BOLUS ONE Stop: 10/12/17 16:18 Last Admin: 10/12/17 18:56 Dose: Not Given Lactated Ringer's (Lactated Ringers) 1,000 mls @ 150 mls/hr IV CONT MARTHA Last Infusion: 10/12/17 18:54 Dose: 0 mls/hr Infusion: 10/12/17 17:40 Dose: 1,000 mls/hr Admin: 10/12/17 15:53 Dose: 150 mls/hr Lactated Ringer's (Lactated Ringers) 1,000 mls @ 200 mls/hr IV CONT MARTHA Last Infusion: 10/12/17 21:28 Dose: 200 mls/hr Admin: 10/12/17 17:40 Dose: 200 mls/hr Ondansetron HCl (Zofran) 4 mg IV NOW ONE Stop: 10/12/17 12:19 Last Admin: 10/12/17 13:08 Dose: 4 mg Ondansetron HCl (Zofran) 4 mg IV NOW ONE Stop: 10/12/17 21:25 Last Admin: 10/12/17 21:28 Dose: 4 mg Potassium Chloride (Klor-Con M20) 40 meq PO NOW ONE Stop: 10/12/17 14:19 Last Admin: 10/12/17 15:37 Dose: 40 meq Tamsulosin HCl (Flomax) 0.4 mg PO NOW ONE Stop: 10/12/17 14:44 Last Admin: 10/12/17 15:37 Dose: 0.4 mg Vital Signs - 8 hr 10/12/17 15:00 10/12/17 15:10 10/12/17 15:14 Temperature Pulse Rate 101 H 99 H 101 H Respiratory Rate 19 27 H 17 Blood Pressure [Left Arm] 85/72 L 80/55 L 83/55 L Pulse Oximetry 96 95 95 10/12/17 15:30 10/12/17 16:00 10/12/17 16:20 Temperature Pulse Rate 103 H 101 H 100 H Respiratory Rate 29 H 32 H 32 H Blood Pressure [Left Arm] 78/43 L 85/51 L 88/56 L Pulse Oximetry 92 95 10/12/17 16:30 10/12/17 16:40 10/12/17 17:12 Temperature Pulse Rate 104 H 102 H 100 H Respiratory Rate 30 H 32 H 30 H Blood Pressure [Left Arm] 88/56 L 89/54 L 77/49 L Pulse Oximetry 97 10/12/17 17:37 10/12/17 19:36 10/12/17 20:41 Temperature 103.9 F H Pulse Rate 100 H 99 H 131 H Respiratory Rate 38 H 23 32 H Blood Pressure [Left Arm] 88/54 L 90/71 164/69 H Pulse Oximetry 94 97 96 10/12/17 21:13 Temperature 103.5 F H Pulse Rate Respiratory Rate Blood Pressure [Left Arm] Pulse Oximetry MDM - Nausea/Vomiting/Diarrhea <BRADY Martinez - Last Filed: 10/12/17 22:20> Lab Data Result diagrams: 10/12/17 12:10 10/12/17 12:10 Lab Results 10/12/17 10/12/17 10/12/17 Range/Units 12:10 12:10 14:14 WBC 4.7 (4.5-11.0) X10^3/uL RBC 4.78 (4.0-5.2) X10^6/uL Hgb 15.1 (12.0-16.0) g/dL Hct 43.8 (36-46) % MCV 91.6 (80-100) fL MCH 31.7 (26-34) PG MCHC 34.6 (30-36) % RDW 13.7 (11.6-14.8) % Plt Count 201 (150-400) X10^3/uL Neut % (Auto) 94.6 H (50-75) % Lymph % (Auto) 4.5 L (25-40) % [place] % (Auto) 0.7 L (3-14) % Eos % (Auto) 0.1 L (2-4) % Baso % (Auto) 0.1 (0-2) % Neut # (Auto) 4500 (9102-8940) /uL Sodium 141 (137-145) mmol/L Potassium 2.8 L (3.4-5.1) mmol/L Chloride 101 (98-107) mmol/L Carbon Dioxide 23 (22-32) mmol/L BUN 14 (7-17) mg/dL Creatinine 1.30 H (0.52-1.04) mg/dL Estimated GFR 40.0 L (>60) mL/min BUN/Creatinine Ratio 10.8 (6-22) Glucose 145 H (80-110) mg/dL Lactate (0.7-2.1) mmol/L Calcium 9.4 (8.4-10.2) mg/dL Total Bilirubin 1.2 (0.2-1.3) mg/dL AST 36 (14-36) IU/L ALT 19 (9-52) IU/L Alkaline Phosphatase 102 (38-126) U/L Total Protein 7.1 (6.3-8.2) g/dL Albumin 4.0 (3.5-5.0) g/dL Globulin 3.1 (1.7-4.1) g/dL Albumin/Globulin Ratio 1.3 (1.0-2.8) Lipase 25 (23-300) U/L Procalcitonin 16.57 H (<0.5) ng/mL A. baumannii (PCR) (Not Detect) Malini albicans (PCR) (Not Detect) C. glabrata (PCR) (Not Detect) C. krusei (PCR) (Not Detect) C. parapsilosis (PCR) (Not Detect) C. tropicalis (PCR) (Not Detect) Enterobacteriac sp PCR (Not Detect) E. cloacae complex PCR (Not Detect) Enterococcus sp PCR (Not Detect) E. coli (PCR) (Not Detect) H. influenzae (PCR) (Not Detect) Klebsiella oxytoca PCR (Not Detect) Klebsiella pneumoniae (Not Detect) List. monocytogenes PCR (Not Detect) N. meningitidis (PCR) (Not Detect) Proteus species (PCR) (Not Detect) Serratia marcescens PCR (Not Detect) Staphylococcus sp PCR (Not Detect) Staph aureus (PCR) (Not Detect) mecA-Methicil Res Gene (Not Detect) Streptococcus sp PCR (Not Detect) Group A Strep (PCR) (Not Detect) Strep agalactiae (PCR) (Not Detect) Strep pneumoniae (PCR) (Not Detect) P. aeruginosa (PCR) (Not Detect) Erik/B-Vanco Res Genes KPC-Carbap Res Gene PCR (Not Detect) 10/12/17 10/12/17 10/13/17 Range/Units 14:14 18:27 14:14 WBC (4.5-11.0) X10^3/uL RBC (4.0-5.2) X10^6/uL Hgb (12.0-16.0) g/dL Hct (36-46) % MCV (80-100) fL MCH (26-34) PG MCHC (30-36) % RDW (11.6-14.8) % Plt Count (150-400) X10^3/uL Neut % (Auto) (50-75) % Lymph % (Auto) (25-40) % [place] % (Auto) (3-14) % Eos % (Auto) (2-4) % Baso % (Auto) (0-2) % Neut # (Auto) (7174-7296) /uL Sodium (137-145) mmol/L Potassium (3.4-5.1) mmol/L Chloride (98-107) mmol/L Carbon Dioxide (22-32) mmol/L BUN (7-17) mg/dL Creatinine (0.52-1.04) mg/dL Estimated GFR (>60) mL/min BUN/Creatinine Ratio (6-22) Glucose (80-110) mg/dL Lactate 5.3 H 4.7 H (0.7-2.1) mmol/L Calcium (8.4-10.2) mg/dL Total Bilirubin (0.2-1.3) mg/dL AST (14-36) IU/L ALT (9-52) IU/L Alkaline Phosphatase (38-126) U/L Total Protein (6.3-8.2) g/dL Albumin (3.5-5.0) g/dL Globulin (1.7-4.1) g/dL Albumin/Globulin Ratio (1.0-2.8) Lipase (23-300) U/L Procalcitonin (<0.5) ng/mL A. baumannii (PCR) Not detected (Not Detect) Malini albicans (PCR) Not detected (Not Detect) C. glabrata (PCR) Not detected (Not Detect) C. krusei (PCR) Not detected (Not Detect) C. parapsilosis (PCR) Not detected (Not Detect) C. tropicalis (PCR) Not detected (Not Detect) Enterobacteriac sp PCR Detected H (Not Detect) E. cloacae complex PCR Not detected (Not Detect) Enterococcus sp PCR Not detected (Not Detect) E. coli (PCR) Detected H (Not Detect) H. influenzae (PCR) Not detected (Not Detect) Klebsiella oxytoca PCR Not detected (Not Detect) Klebsiella pneumoniae Not detected (Not Detect) List. monocytogenes PCR Not detected (Not Detect) N. meningitidis (PCR) Not detected (Not Detect) Proteus species (PCR) Not detected (Not Detect) Serratia marcescens PCR Not detected (Not Detect) Staphylococcus sp PCR Not detected (Not Detect) Staph aureus (PCR) Not detected (Not Detect) mecA-Methicil Res Gene Not detected (Not Detect) Streptococcus sp PCR Not detected (Not Detect) Group A Strep (PCR) Not detected (Not Detect) Strep agalactiae (PCR) Not detected (Not Detect) Strep pneumoniae (PCR) Not detected (Not Detect) P. aeruginosa (PCR) Not detected (Not Detect) Erik/B-Vanco Res Genes Not Reportable KPC-Carbap Res Gene PCR Not detected (Not Detect) Imaging Data CT scan - chest: Radiologist's impression: Patient: [place] MR#: [id number] : 1940 Acct:[id number] Age/Sex: 76 / F Date of Service: 10/12/17 Loc: ED Accession Number: [id number] Procedure: XR chest 1V Ordering Provider: Randy Blue PROCEDURE: XR CHEST 1V INDICATIONS: Decreased blood pressure TECHNIQUE: One view of the chest was acquired. COMPARISON: [facility], CR, XR CHEST 1V, 08/18/2017, 22:03. FINDINGS: Surgical changes and devices: None. Lungs and pleura: No pleural effusions or pneumothorax. Lungs are clear except for minimal scar or atelectasis at the left base projecting through the diaphragm. Mediastinum: Mediastinal contours appear normal. Heart size is normal. Bones and chest wall: No suspicious bony lesions. Overlying soft tissues appear unremarkable. IMPRESSION: Minimal left basilar scar or atelectasis again noted, otherwise no acute cardiopulmonary abnormality is seen CT scan - abdomen: Radiologist's impression: PROCEDURE: CT KIDNEY URETER BLADDER (KUB) INDICATIONS: Bilateral lower abdominal pain TECHNIQUE: Noncontrast 5 mm thick sections acquired from the diaphragms to the symphysis. 5 mm thick coronal and sagittal reformats were then performed. For radiation dose reduction, the following was used: automated exposure control, adjustment of mA and/or kV according to patient size. COMPARISON: [facility], CT, CT ABDOMEN PELVIS WO CON, 08/18/2017, 22:43. FINDINGS: Image quality: Excellent. Lung bases: Bibasilar atelectasis. Heart size is normal. Urinary system: Bilateral nephrolithiasis is again noted. There is moderate left perinephric fat stranding that is new. Left hydronephrosis is present with dilatation of the ureter proximal to a obstructing 6 mm stone, attenuation 1039, located within the proximal left ureter at the L5 level. There is also mild right hydronephrosis secondary to an obstructing 5 mm stone in the proximal ureter at the L4 level. There is also a 6 mm stone in the left posterior urinary bladder not present previously. Other solid organs: Liver is normal in size. Gallbladder appears normal. Pancreas is normal in contours. Spleen is normal in size. No adrenal nodules. Peritoneum and bowel: Unenhanced bowel loops demonstrate normal wall thickness and caliber. Mild uncomplicated colonic diverticulosis. Appendix is not seen. No free fluid or air. Nodes and vessels: No retroperitoneal or mesenteric adenopathy by size criteria. Aorta and inferior vena cava are normal in caliber. Abdominal wall: No ventral hernias. Pelvis: No free pelvic fluid. No inguinal hernias or adenopathy. Bones: No suspicious bony lesions. No vertebral body compression fractures. IMPRESSION: 1. Bilateral nephrolithiasis. 2. Bilateral hydroureteronephrosis secondary to stones in the proximal ureters. Left perinephric fat stranding is evident. 3. Calcification in the dependent bladder compatible with recently passed stone. Dictated by: Chi Yan M.D. on 10/12/2017 at 13:42 Approved by: Chi Yan M.D. on 10/12/2017 at 14:01 MDM Narrative Medical decision making narrative: CT of the abdomen was obtained and shows a bilateral obstructing stone to the proximal ureters with hydronephrosis bilaterally. Initial vital signs showed that she was tachycardic at 130 with blood pressure 140/70. Shortly later that she developed a blood pressure of 70s over 40s with heart rate dropping down to 100. Initial CBC showed negative white count. Chem panel shows a decreased GFR of 40 and elevated creatinine of 1.3. I was unable to obtain urinalysis as patient was not able to provide urine. Lactate and procalcitonin were ordered which resulted in a lactate of 5.3 and procalcitonin of 16.5. Shortly after these results she was prescribed 2 g of Rocephin of IV. She was given a 30 mL per kg of fluids. blood cultures are pending. Discussed case with Urology at [facility] who recommended the patient be transferred to another facility and ICU placement and nephrostomy. however they did not have any rooms available. Discussed case with [facility] who accepted patient to ICU DR. Bermudez. Patient transferred to [facility] via ALS. <Yadira Medley, DO - Last Filed: 10/13/17 06:39> Lab Data Lab Results 10/12/17 10/12/17 10/12/17 Range/Units 12:10 12:10 14:14 WBC 4.7 (4.5-11.0) X10^3/uL RBC 4.78 (4.0-5.2) X10^6/uL Hgb 15.1 (12.0-16.0) g/dL Hct 43.8 (36-46) % MCV 91.6 (80-100) fL MCH 31.7 (26-34) PG MCHC 34.6 (30-36) % RDW 13.7 (11.6-14.8) % Plt Count 201 (150-400) X10^3/uL Neut % (Auto) 94.6 H (50-75) % Lymph % (Auto) 4.5 L (25-40) % [place] % (Auto) 0.7 L (3-14) % Eos % (Auto) 0.1 L (2-4) % Baso % (Auto) 0.1 (0-2) % Neut # (Auto) 4500 (8589-6234) /uL Sodium 141 (137-145) mmol/L Potassium 2.8 L (3.4-5.1) mmol/L Chloride 101 (98-107) mmol/L Carbon Dioxide 23 (22-32) mmol/L BUN 14 (7-17) mg/dL Creatinine 1.30 H (0.52-1.04) mg/dL Estimated GFR 40.0 L (>60) mL/min BUN/Creatinine Ratio 10.8 (6-22) Glucose 145 H (80-110) mg/dL Lactate (0.7-2.1) mmol/L Calcium 9.4 (8.4-10.2) mg/dL Total Bilirubin 1.2 (0.2-1.3) mg/dL AST 36 (14-36) IU/L ALT 19 (9-52) IU/L Alkaline Phosphatase 102 (38-126) U/L Total Protein 7.1 (6.3-8.2) g/dL Albumin 4.0 (3.5-5.0) g/dL Globulin 3.1 (1.7-4.1) g/dL Albumin/Globulin Ratio 1.3 (1.0-2.8) Lipase 25 (23-300) U/L Procalcitonin 16.57 H (<0.5) ng/mL A. baumannii (PCR) (Not Detect) Malini albicans (PCR) (Not Detect) C. glabrata (PCR) (Not Detect) C. krusei (PCR) (Not Detect) C. parapsilosis (PCR) (Not Detect) C. tropicalis (PCR) (Not Detect) Enterobacteriac sp PCR (Not Detect) E. cloacae complex PCR (Not Detect) Enterococcus sp PCR (Not Detect) E. coli (PCR) (Not Detect) H. influenzae (PCR) (Not Detect) Klebsiella oxytoca PCR (Not Detect) Klebsiella pneumoniae (Not Detect) List. monocytogenes PCR (Not Detect) N. meningitidis (PCR) (Not Detect) Proteus species (PCR) (Not Detect) Serratia marcescens PCR (Not Detect) Staphylococcus sp PCR (Not Detect) Staph aureus (PCR) (Not Detect) mecA-Methicil Res Gene (Not Detect) Streptococcus sp PCR (Not Detect) Group A Strep (PCR) (Not Detect) Strep agalactiae (PCR) (Not Detect) Strep pneumoniae (PCR) (Not Detect) P. aeruginosa (PCR) (Not Detect) Erik/B-Vanco Res Genes KPC-Carbap Res Gene PCR (Not Detect) 10/12/17 10/12/17 10/13/17 Range/Units 14:14 18:27 14:14 WBC (4.5-11.0) X10^3/uL RBC (4.0-5.2) X10^6/uL Hgb (12.0-16.0) g/dL Hct (36-46) % MCV (80-100) fL MCH (26-34) PG MCHC (30-36) % RDW (11.6-14.8) % Plt Count (150-400) X10^3/uL Neut % (Auto) (50-75) % Lymph % (Auto) (25-40) % [place] % (Auto) (3-14) % Eos % (Auto) (2-4) % Baso % (Auto) (0-2) % Neut # (Auto) (3994-9421) /uL Sodium (137-145) mmol/L Potassium (3.4-5.1) mmol/L Chloride (98-107) mmol/L Carbon Dioxide (22-32) mmol/L BUN (7-17) mg/dL Creatinine (0.52-1.04) mg/dL Estimated GFR (>60) mL/min BUN/Creatinine Ratio (6-22) Glucose (80-110) mg/dL Lactate 5.3 H 4.7 H (0.7-2.1) mmol/L Calcium (8.4-10.2) mg/dL Total Bilirubin (0.2-1.3) mg/dL AST (14-36) IU/L ALT (9-52) IU/L Alkaline Phosphatase (38-126) U/L Total Protein (6.3-8.2) g/dL Albumin (3.5-5.0) g/dL Globulin (1.7-4.1) g/dL Albumin/Globulin Ratio (1.0-2.8) Lipase (23-300) U/L Procalcitonin (<0.5) ng/mL A. baumannii (PCR) Not detected (Not Detect) Malini albicans (PCR) Not detected (Not Detect) C. glabrata (PCR) Not detected (Not Detect) C. krusei (PCR) Not detected (Not Detect) C. parapsilosis (PCR) Not detected (Not Detect) C. tropicalis (PCR) Not detected (Not Detect) Enterobacteriac sp PCR Detected H (Not Detect) E. cloacae complex PCR Not detected (Not Detect) Enterococcus sp PCR Not detected (Not Detect) E. coli (PCR) Detected H (Not Detect) H. influenzae (PCR) Not detected (Not Detect) Klebsiella oxytoca PCR Not detected (Not Detect) Klebsiella pneumoniae Not detected (Not Detect) List. monocytogenes PCR Not detected (Not Detect) N. meningitidis (PCR) Not detected (Not Detect) Proteus species (PCR) Not detected (Not Detect) Serratia marcescens PCR Not detected (Not Detect) Staphylococcus sp PCR Not detected (Not Detect) Staph aureus (PCR) Not detected (Not Detect) mecA-Methicil Res Gene Not detected (Not Detect) Streptococcus sp PCR Not detected (Not Detect) Group A Strep (PCR) Not detected (Not Detect) Strep agalactiae (PCR) Not detected (Not Detect) Strep pneumoniae (PCR) Not detected (Not Detect) P. aeruginosa (PCR) Not detected (Not Detect) Erik/B-Vanco Res Genes Not Reportable KPC-Carbap Res Gene PCR Not detected (Not Detect) Discharge Plan Departure Patient Disposition: [facility] Clinical Impression: Sepsis, Acute pyelonephritis, Bilateral nephrolithiasis Discharge Date/Time: 10/12/17 21:35 Interventions: ED Discharge Assessment Last Done: 10/12/17 21:32 Prescriptions: No Action hydrochlorothiazide 25 MG tablet 25 mg PO QDAY Qty: 0 RF: 0 oxybutynin chloride 5 mg Tablet 5 mg PO BID RF: 0 lisinopril 20 mg tablet 20 mg PO DAILY RF: 0 amlodipine 5 mg tablet 5 mg PO DAILY RF: 0 tamsulosin 0.4 mg capsule 0.4 mg PO DAILY RF: 0 hydrocodone-acetaminophen 5-325 mg tablet 1 tab PO Q4H PRN (Reason: Pain, Moderate) RF: 0 <Yadira Medley DO - Last Filed: 10/13/17 06:39> Sign Out Provider Sign Out Attestation: 10/13/2017 6:30 a.m. The lab called she has 2 positive blood cultures growing E coli. Results have been faxed down to [facility].
--- NOTE | 2017-10-12 12:21 | ED_ITS ---
HPI - Nausea/Vomiting/Diarrhea <BRADY Martinez - Last Filed: 10/12/17 22:20> General Chief complaint: Nausea/Vomiting/Diarrhea Stated complaint: STATES PASSING KIDNEY STONES Time Seen by Provider: 10/12/17 12:09 Source: patient Mode of arrival: ambulatory Limitations: no limitations History of Present Illness HPI Narrative: 76-year-old female with history of nephrolithiasis here for complaint of having bilateral lower abdominal pain and lower back pain. She is concerned she may be passing a stone. She also reports having nausea and vomiting. All her symptoms started last night. She denies any fevers or chills. She reports last bowel movement was last night and was unremarkable. She denies any urinary symptoms. Decreased p.o. intake due to nausea and vomiting. She reports having several episodes of vomiting today. She denies any trauma to the abdomen. She is ambulatory into the emergency room. No other concerns or complaints. MD complaint: nausea, vomiting and abdominal pain Related Data Home Medications Medication Instructions Recorded Confirmed hydrochlorothiazide 25 mg PO QDAY #0 10/18/12 10/12/17 oxybutynin chloride 5 mg PO BID 08/19/17 10/12/17 amlodipine 5 mg PO DAILY 10/12/17 10/12/17 hydrocodone-acetaminophen 1 tab PO Q4H PRN 10/12/17 10/12/17 lisinopril 20 mg PO DAILY 10/12/17 10/12/17 tamsulosin 0.4 mg PO DAILY 10/12/17 10/12/17 Allergies Allergy/AdvReac Type Severity Reaction Status Date / Time codeine AdvReac Intermediate NAUSEA Verified 08/19/17 00:50 hydromorphone AdvReac Intermediate ITCHING Verified 08/19/17 00:50 oxycodone AdvReac Mild ITCHING Verified 08/19/17 00:50 Review of Systems <BRADY Martinez - Last Filed: 10/12/17 22:20> Constitutional Denies chills, Denies fever(s), Denies lethargy and Denies weakness Eyes Denies change in vision, Denies eye discharge, Denies irritation and Denies loss of vision ENT Ears, Nose, Mouth, and Throat: Denies change in voice, Denies neck pain and Denies sore throat Cardiovascular Denies chest pain, Denies irregular heart rhythm, Denies lightheadedness, Denies palpitations, Denies dyspnea, Denies dyspnea on exertion and Denies orthopnea Respiratory Denies cough, Denies dyspnea, Denies dyspnea on exertion and Denies wheezing Gastrointestinal Gastrointestinal: Reports abdominal pain, Reports nausea and Reports vomiting Genitourinary Denies hematuria, Denies flank pain, Denies urinary incontinence and Denies urinary urgency Musculoskeletal Denies neck pain Integumentary/Breasts Denies pruritus, Denies erythema, Denies rash and Denies wounds Neurologic Denies confusion, Denies loss of vision and Denies weakness Psychiatric Denies anxiety, Denies confusion, Denies depression, Denies homicidal ideation and Denies suicidal ideation Endocrine Denies palpitations Hematologic/Lymphatic Denies easy bruising Allergic/Immunologic Denies wheezing Exam <BRADY Martinez - Last Filed: 10/12/17 22:20> Initial Vital Signs Initial Vital Signs: Vital Signs Temperature 97.4 F L 10/12/17 11:22 Pulse Rate 117 H 10/12/17 11:22 Respiratory Rate 30 H 10/12/17 11:22 Blood Pressure 140/70 H 10/12/17 11:22 Pulse Oximetry 96 10/12/17 11:22 Const General: cooperative and well developed Nutritional Appearance: well nourished Orientation: alert, awake, oriented x3 and not confused [facility] Mouth: oral mucosae normal and moist mucous membranes Eyes Conjunctivae: conjunctivae normal Sclera: sclerae normal Pupils: PERRL EOM: EOM intact bilaterally Resp Effort & Inspection: normal respiratory effort, able to speak in complete sentences, no respiratory distress and no use of accessory muscles Auscultation: clear to auscultation bilaterally, no rales, no rhonchi and no wheezes Cardio Rate: regular rate Rhythm: regular rhythm Heart Sounds: no click, no gallops, no murmurs and no rubs Pulses: normal peripheral pulses GI Inspection: non-distended Palpation: soft, no hepatosplenomegaly, No guarding, No pulsatile mass and tender (Tender bilateral lower abdomen) Auscultation: normal bowel sounds General: No CVA tenderness Skin General: no rashes or lesions noted, No jaundice and No petechiae Neuro General: alert, oriented x3, gait normal and no focal motor deficits Speech: speech normal <Yadira Medley DO - Last Filed: 10/13/17 06:39> Initial Vital Signs Initial Vital Signs: Vital Signs Temperature 97.4 F L 10/12/17 11:22 Pulse Rate 117 H 10/12/17 11:22 Respiratory Rate 30 H 10/12/17 11:22 Blood Pressure 140/70 H 10/12/17 11:22 Pulse Oximetry 96 10/12/17 11:22 Course <BRADY Martinez - Last Filed: 10/12/17 22:20> Orders Ordered: ED Orders 10/13/17 14:14 Gram Stain Pos BC Stat Discontinued Medications Acetaminophen (Tylenol) 975 mg PO NOW ONE Stop: 10/12/17 20:50 Last Admin: 10/12/17 21:13 Dose: 975 mg Hydromorphone HCl (Dilaudid) 0.5 mg IV NOW ONE Stop: 10/12/17 20:12 Last Admin: 10/12/17 20:13 Dose: 0.5 mg Sodium Chloride (Normal Saline 0.9%) 1,000 mls @ 1,000 mls/hr IV BOLUS ONE Stop: 10/12/17 13:17 Last Infusion: 10/12/17 15:11 Dose: 0 mls/hr Admin: 10/12/17 13:08 Dose: 1,000 mls/hr Sodium Chloride (Normal Saline 0.9%) 1,000 mls @ 1,000 mls/hr IV BOLUS ONE Stop: 10/12/17 14:56 Last Infusion: 10/12/17 15:12 Dose: 0 mls/hr Admin: 10/12/17 14:00 Dose: 1,000 mls/hr Ceftriaxone Sodium/Dextrose (Rocephin) 2 gm in 50 mls @ 100 mls/hr IV NOW ONE Stop: 10/12/17 16:17 Last Infusion: 10/12/17 16:34 Dose: 0 mls/hr Admin: 10/12/17 15:59 Dose: 100 mls/hr Lactated Ringer's (Lactated Ringers) 500 mls @ 1,000 mls/hr IV BOLUS ONE Stop: 10/12/17 16:18 Last Admin: 10/12/17 18:56 Dose: Not Given Lactated Ringer's (Lactated Ringers) 1,000 mls @ 150 mls/hr IV CONT MARTHA Last Infusion: 08/13/18 18:54 Dose: 0 mls/hr Infusion: 10/12/17 17:40 Dose: 1,000 mls/hr Admin: 10/12/17 15:53 Dose: 150 mls/hr Lactated Ringer's (Lactated Ringers) 1,000 mls @ 200 mls/hr IV CONT MARTHA Last Infusion: 10/12/17 21:28 Dose: 200 mls/hr Admin: 10/12/17 17:40 Dose: 200 mls/hr Ondansetron HCl (Zofran) 4 mg IV NOW ONE Stop: 10/12/17 12:19 Last Admin: 10/12/17 13:08 Dose: 4 mg Ondansetron HCl (Zofran) 4 mg IV NOW ONE Stop: 10/12/17 21:25 Last Admin: 10/12/17 21:28 Dose: 4 mg Potassium Chloride (Klor-Con M20) 40 meq PO NOW ONE Stop: 10/12/17 14:19 Last Admin: 10/12/17 15:37 Dose: 40 meq Tamsulosin HCl (Flomax) 0.4 mg PO NOW ONE Stop: 10/12/17 14:44 Last Admin: 10/12/17 15:37 Dose: 0.4 mg Vital Signs - 8 hr 10/12/17 15:00 10/12/17 15:10 10/12/17 15:14 Temperature Pulse Rate 101 H 99 H 101 H Respiratory Rate 19 27 H 17 Blood Pressure [Left Arm] 85/72 L 80/55 L 83/55 L Pulse Oximetry 96 95 95 10/12/17 15:30 10/12/17 16:00 10/12/17 16:20 Temperature Pulse Rate 103 H 101 H 100 H Respiratory Rate 29 H 32 H 32 H Blood Pressure [Left Arm] 78/43 L 85/51 L 88/56 L Pulse Oximetry 92 95 10/12/17 16:30 10/12/17 16:40 10/12/17 17:12 Temperature Pulse Rate 104 H 102 H 100 H Respiratory Rate 30 H 32 H 30 H Blood Pressure [Left Arm] 88/56 L 89/54 L 77/49 L Pulse Oximetry 97 10/12/17 17:37 10/12/17 19:36 10/12/17 20:41 Temperature 103.9 F H Pulse Rate 100 H 99 H 131 H Respiratory Rate 38 H 23 32 H Blood Pressure [Left Arm] 88/54 L 90/71 164/69 H Pulse Oximetry 94 97 96 10/12/17 21:13 Temperature 103.5 F H Pulse Rate Respiratory Rate Blood Pressure [Left Arm] Pulse Oximetry <Yadira Medley, - Last Filed: 10/13/17 06:39> Orders Ordered: ED Orders 10/13/17 14:14 Gram Stain Pos BC Stat Discontinued Medications Acetaminophen (Tylenol) 975 mg PO NOW ONE Stop: 10/12/17 20:50 Last Admin: 10/12/17 21:13 Dose: 975 mg Hydromorphone HCl (Dilaudid) 0.5 mg IV NOW ONE Stop: 10/12/17 20:12 Last Admin: 10/12/17 20:13 Dose: 0.5 mg Sodium Chloride (Normal Saline 0.9%) 1,000 mls @ 1,000 mls/hr IV BOLUS ONE Stop: 10/12/17 13:17 Last Infusion: 10/12/17 15:11 Dose: 0 mls/hr Admin: 10/12/17 13:08 Dose: 1,000 mls/hr Sodium Chloride (Normal Saline 0.9%) 1,000 mls @ 1,000 mls/hr IV BOLUS ONE Stop: 10/12/17 14:56 Last Infusion: 10/12/17 15:12 Dose: 0 mls/hr Admin: 10/12/17 14:00 Dose: 1,000 mls/hr Ceftriaxone Sodium/Dextrose (Rocephin) 2 gm in 50 mls @ 100 mls/hr IV NOW ONE Stop: 10/12/17 16:17 Last Infusion: 10/12/17 16:34 Dose: 0 mls/hr Admin: 10/12/17 15:59 Dose: 100 mls/hr Lactated Ringer's (Lactated Ringers) 500 mls @ 1,000 mls/hr IV BOLUS ONE Stop: 10/12/17 16:18 Last Admin: 10/12/17 18:56 Dose: Not Given Lactated Ringer's (Lactated Ringers) 1,000 mls @ 150 mls/hr IV CONT MARTHA Last Infusion: 10/12/17 18:54 Dose: 0 mls/hr Infusion: 10/12/17 17:40 Dose: 1,000 mls/hr Admin: 10/12/17 15:53 Dose: 150 mls/hr Lactated Ringer's (Lactated Ringers) 1,000 mls @ 200 mls/hr IV CONT MARTHA Last Infusion: 10/12/17 21:28 Dose: 200 mls/hr Admin: 10/12/17 17:40 Dose: 200 mls/hr Ondansetron HCl (Zofran) 4 mg IV NOW ONE Stop: 10/12/17 12:19 Last Admin: 10/12/17 13:08 Dose: 4 mg Ondansetron HCl (Zofran) 4 mg IV NOW ONE Stop: 10/12/17 21:25 Last Admin: 10/12/17 21:28 Dose: 4 mg Potassium Chloride (Klor-Con M20) 40 meq PO NOW ONE Stop: 10/12/17 14:19 Last Admin: 10/12/17 15:37 Dose: 40 meq Tamsulosin HCl (Flomax) 0.4 mg PO NOW ONE Stop: 10/12/17 14:44 Last Admin: 10/12/17 15:37 Dose: 0.4 mg Vital Signs - 8 hr 10/12/17 15:00 10/12/17 15:10 10/12/17 15:14 Temperature Pulse Rate 101 H 99 H 101 H Respiratory Rate 19 27 H 17 Blood Pressure [Left Arm] 85/72 L 80/55 L 83/55 L Pulse Oximetry 96 95 95 10/12/17 15:30 10/12/17 16:00 10/12/17 16:20 Temperature Pulse Rate 103 H 101 H 100 H Respiratory Rate 29 H 32 H 32 H Blood Pressure [Left Arm] 78/43 L 85/51 L 88/56 L Pulse Oximetry 92 95 10/12/17 16:30 10/12/17 16:40 10/12/17 17:12 Temperature Pulse Rate 104 H 102 H 100 H Respiratory Rate 30 H 32 H 30 H Blood Pressure [Left Arm] 88/56 L 89/54 L 77/49 L Pulse Oximetry 97 10/12/17 17:37 10/12/17 19:36 10/12/17 20:41 Temperature 103.9 F H Pulse Rate 100 H 99 H 131 H Respiratory Rate 38 H 23 32 H Blood Pressure [Left Arm] 88/54 L 90/71 164/69 H Pulse Oximetry 94 97 96 10/12/17 21:13 Temperature 103.5 F H Pulse Rate Respiratory Rate Blood Pressure [Left Arm] Pulse Oximetry MDM - Nausea/Vomiting/Diarrhea <BRADY Martinez - Last Filed: 10/12/17 22:20> Lab Data Result diagrams: 10/12/17 12:10 10/12/17 12:10 Lab Results 10/12/17 10/12/17 10/12/17 Range/Units 12:10 12:10 14:14 WBC 4.7 (4.5-11.0) X10^3/uL RBC 4.78 (4.0-5.2) X10^6/uL Hgb 15.1 (12.0-16.0) g/dL Hct 43.8 (36-46) % MCV 91.6 (80-100) fL MCH 31.7 (26-34) PG MCHC 34.6 (30-36) % RDW 13.7 (11.6-14.8) % Plt Count 201 (150-400) X10^3/uL Neut % (Auto) 94.6 H (50-75) % Lymph % (Auto) 4.5 L (25-40) % [place] % (Auto) 0.7 L (3-14) % Eos % (Auto) 0.1 L (2-4) % Baso % (Auto) 0.1 (0-2) % Neut # (Auto) 4500 (0260-3712) /uL Sodium 141 (137-145) mmol/L Potassium 2.8 L (3.4-5.1) mmol/L Chloride 101 (98-107) mmol/L Carbon Dioxide 23 (22-32) mmol/L BUN 14 (7-17) mg/dL Creatinine 1.30 H (0.52-1.04) mg/dL Estimated GFR 40.0 L (>60) mL/min BUN/Creatinine Ratio 10.8 (6-22) Glucose 145 H (80-110) mg/dL Lactate (0.7-2.1) mmol/L Calcium 9.4 (8.4-10.2) mg/dL Total Bilirubin 1.2 (0.2-1.3) mg/dL AST 36 (14-36) IU/L ALT 19 (9-52) IU/L Alkaline Phosphatase 102 (38-126) U/L Total Protein 7.1 (6.3-8.2) g/dL Albumin 4.0 (3.5-5.0) g/dL Globulin 3.1 (1.7-4.1) g/dL Albumin/Globulin Ratio 1.3 (1.0-2.8) Lipase 25 (23-300) U/L Procalcitonin 16.57 H (<0.5) ng/mL A. baumannii (PCR) (Not Detect) Malini albicans (PCR) (Not Detect) C. glabrata (PCR) (Not Detect) C. krusei (PCR) (Not Detect) C. parapsilosis (PCR) (Not Detect) C. tropicalis (PCR) (Not Detect) Enterobacteriac sp PCR (Not Detect) E. cloacae complex PCR (Not Detect) Enterococcus sp PCR (Not Detect) E. coli (PCR) (Not Detect) H. influenzae (PCR) (Not Detect) Klebsiella oxytoca PCR (Not Detect) Klebsiella pneumoniae (Not Detect) List. monocytogenes PCR (Not Detect) N. meningitidis (PCR) (Not Detect) Proteus species (PCR) (Not Detect) Serratia marcescens PCR (Not Detect) Staphylococcus sp PCR (Not Detect) Staph aureus (PCR) (Not Detect) mecA-Methicil Res Gene (Not Detect) Streptococcus sp PCR (Not Detect) Group A Strep (PCR) (Not Detect) Strep agalactiae (PCR) (Not Detect) Strep pneumoniae (PCR) (Not Detect) P. aeruginosa (PCR) (Not Detect) Erik/B-Vanco Res Genes KPC-Carbap Res Gene PCR (Not Detect) 10/12/17 10/12/17 10/13/17 Range/Units 14:14 18:27 14:14 WBC (4.5-11.0) X10^3/uL RBC (4.0-5.2) X10^6/uL Hgb (12.0-16.0) g/dL Hct (36-46) % MCV (80-100) fL MCH (26-34) PG MCHC (30-36) % RDW (11.6-14.8) % Plt Count (150-400) X10^3/uL Neut % (Auto) (50-75) % Lymph % (Auto) (25-40) % [place] % (Auto) (3-14) % Eos % (Auto) (2-4) % Baso % (Auto) (0-2) % Neut # (Auto) (8136-6939) /uL Sodium (137-145) mmol/L Potassium (3.4-5.1) mmol/L Chloride (98-107) mmol/L Carbon Dioxide (22-32) mmol/L BUN (7-17) mg/dL Creatinine (0.52-1.04) mg/dL Estimated GFR (>60) mL/min BUN/Creatinine Ratio (6-22) Glucose (80-110) mg/dL Lactate 5.3 H 4.7 H (0.7-2.1) mmol/L Calcium (8.4-10.2) mg/dL Total Bilirubin (0.2-1.3) mg/dL AST (14-36) IU/L ALT (9-52) IU/L Alkaline Phosphatase (38-126) U/L Total Protein (6.3-8.2) g/dL Albumin (3.5-5.0) g/dL Globulin (1.7-4.1) g/dL Albumin/Globulin Ratio (1.0-2.8) Lipase (23-300) U/L Procalcitonin (<0.5) ng/mL A. baumannii (PCR) Not detected (Not Detect) Malini albicans (PCR) Not detected (Not Detect) C. glabrata (PCR) Not detected (Not Detect) C. krusei (PCR) Not detected (Not Detect) C. parapsilosis (PCR) Not detected (Not Detect) C. tropicalis (PCR) Not detected (Not Detect) Enterobacteriac sp PCR Detected H (Not Detect) E. cloacae complex PCR Not detected (Not Detect) Enterococcus sp PCR Not detected (Not Detect) E. coli (PCR) Detected H (Not Detect) H. influenzae (PCR) Not detected (Not Detect) Klebsiella oxytoca PCR Not detected (Not Detect) Klebsiella pneumoniae Not detected (Not Detect) List. monocytogenes PCR Not detected (Not Detect) N. meningitidis (PCR) Not detected (Not Detect) Proteus species (PCR) Not detected (Not Detect) Serratia marcescens PCR Not detected (Not Detect) Staphylococcus sp PCR Not detected (Not Detect) Staph aureus (PCR) Not detected (Not Detect) mecA-Methicil Res Gene Not detected (Not Detect) Streptococcus sp PCR Not detected (Not Detect) Group A Strep (PCR) Not detected (Not Detect) Strep agalactiae (PCR) Not detected (Not Detect) Strep pneumoniae (PCR) Not detected (Not Detect) P. aeruginosa (PCR) Not detected (Not Detect) Erik/B-Vanco Res Genes Not Reportable KPC-Carbap Res Gene PCR Not detected (Not Detect) Imaging Data CT scan - chest: Radiologist's impression: Patient: [place] MR#: [id number] : 1940 Acct:[id number] Age/Sex: 76 / F Date of Service: 10/12/17 Loc: ED Accession Number: [id number] Procedure: XR chest 1V Ordering Provider: Randy Blue PROCEDURE: XR CHEST 1V INDICATIONS: Decreased blood pressure TECHNIQUE: One view of the chest was acquired. COMPARISON: [facility], CR, XR CHEST 1V, 08/18/2017, 22:03. FINDINGS: Surgical changes and devices: None. Lungs and pleura: No pleural effusions or pneumothorax. Lungs are clear except for minimal scar or atelectasis at the left base projecting through the diaphragm. Mediastinum: Mediastinal contours appear normal. Heart size is normal. Bones and chest wall: No suspicious bony lesions. Overlying soft tissues appear unremarkable. IMPRESSION: Minimal left basilar scar or atelectasis again noted, otherwise no acute cardiopulmonary abnormality is seen CT scan - abdomen: Radiologist's impression: PROCEDURE: CT KIDNEY URETER BLADDER (KUB) INDICATIONS: Bilateral lower abdominal pain TECHNIQUE: Noncontrast 5 mm thick sections acquired from the diaphragms to the symphysis. 5 mm thick coronal and sagittal reformats were then performed. For radiation dose reduction, the following was used: automated exposure control, adjustment of mA and/or kV according to patient size. COMPARISON: [facility], CT, CT ABDOMEN PELVIS WO CON, 08/18/2017, 22:43. FINDINGS: Image quality: Excellent. Lung bases: Bibasilar atelectasis. Heart size is normal. Urinary system: Bilateral nephrolithiasis is again noted. There is moderate left perinephric fat stranding that is new. Left hydronephrosis is present with dilatation of the ureter proximal to a obstructing 6 mm stone, attenuation 1039, located within the proximal left ureter at the L5 level. There is also mild right hydronephrosis secondary to an obstructing 5 mm stone in the proximal ureter at the L4 level. There is also a 6 mm stone in the left posterior urinary bladder not present previously. Other solid organs: Liver is normal in size. Gallbladder appears normal. Pancreas is normal in contours. Spleen is normal in size. No adrenal nodules. Peritoneum and bowel: Unenhanced bowel loops demonstrate normal wall thickness and caliber. Mild uncomplicated colonic diverticulosis. Appendix is not seen. No free fluid or air. Nodes and vessels: No retroperitoneal or mesenteric adenopathy by size criteria. Aorta and inferior vena cava are normal in caliber. Abdominal wall: No ventral hernias. Pelvis: No free pelvic fluid. No inguinal hernias or adenopathy. Bones: No suspicious bony lesions. No vertebral body compression fractures. IMPRESSION: 1. Bilateral nephrolithiasis. 2. Bilateral hydroureteronephrosis secondary to stones in the proximal ureters. Left perinephric fat stranding is evident. 3. Calcification in the dependent bladder compatible with recently passed stone. Dictated by: Chi Yan M.D. on 10/12/2017 at 13:42 Approved by: Chi Yan M.D. on 10/12/2017 at 14:01 MDM Narrative Medical decision making narrative: CT of the abdomen was obtained and shows a bilateral obstructing stone to the proximal ureters with hydronephrosis bilaterally. Initial vital signs showed that she was tachycardic at 130 with blood pressure 140/70. Shortly later that she developed a blood pressure of 70s over 40s with heart rate dropping down to 100. Initial CBC showed negative white count. Chem panel shows a decreased GFR of 40 and elevated creatinine of 1.3. I was unable to obtain urinalysis as patient was not able to provide urine. Lactate and procalcitonin were ordered which resulted in a lactate of 5.3 and procalcitonin of 16.5. Shortly after these results she was prescribed 2 g of Rocephin of IV. She was given a 30 mL per kg of fluids. blood cultures are pending. Discussed case with Urology at [facility] who recommended the patient be transferred to another facility and ICU placement and nephrostomy. however they did not have any rooms available. Discussed case with [facility] who accepted patient to ICU DR. Bermudez. Patient transferred to [facility] via ALS. <Yadira Medley, DO - Last Filed: 10/13/17 06:39> Lab Data Lab Results 10/12/17 10/12/17 10/12/17 Range/Units 12:10 12:10 14:14 WBC 4.7 (4.5-11.0) X10^3/uL RBC 4.78 (4.0-5.2) X10^6/uL Hgb 15.1 (12.0-16.0) g/dL Hct 43.8 (36-46) % MCV 91.6 (80-100) fL MCH 31.7 (26-34) PG MCHC 34.6 (30-36) % RDW 13.7 (11.6-14.8) % Plt Count 201 (150-400) X10^3/uL Neut % (Auto) 94.6 H (50-75) % Lymph % (Auto) 4.5 L (25-40) % [place] % (Auto) 0.7 L (3-14) % Eos % (Auto) 0.1 L (2-4) % Baso % (Auto) 0.1 (0-2) % Neut # (Auto) 4500 (5865-1653) /uL Sodium 141 (137-145) mmol/L Potassium 2.8 L (3.4-5.1) mmol/L Chloride 101 (98-107) mmol/L Carbon Dioxide 23 (22-32) mmol/L BUN 14 (7-17) mg/dL Creatinine 1.30 H (0.52-1.04) mg/dL Estimated GFR 40.0 L (>60) mL/min BUN/Creatinine Ratio 10.8 (6-22) Glucose 145 H (80-110) mg/dL Lactate (0.7-2.1) mmol/L Calcium 9.4 (8.4-10.2) mg/dL Total Bilirubin 1.2 (0.2-1.3) mg/dL AST 36 (14-36) IU/L ALT 19 (9-52) IU/L Alkaline Phosphatase 102 (38-126) U/L Total Protein 7.1 (6.3-8.2) g/dL Albumin 4.0 (3.5-5.0) g/dL Globulin 3.1 (1.7-4.1) g/dL Albumin/Globulin Ratio 1.3 (1.0-2.8) Lipase 25 (23-300) U/L Procalcitonin 16.57 H (<0.5) ng/mL A. baumannii (PCR) (Not Detect) Malini albicans (PCR) (Not Detect) C. glabrata (PCR) (Not Detect) C. krusei (PCR) (Not Detect) C. parapsilosis (PCR) (Not Detect) C. tropicalis (PCR) (Not Detect) Enterobacteriac sp PCR (Not Detect) E. cloacae complex PCR (Not Detect) Enterococcus sp PCR (Not Detect) E. coli (PCR) (Not Detect) H. influenzae (PCR) (Not Detect) Klebsiella oxytoca PCR (Not Detect) Klebsiella pneumoniae (Not Detect) List. monocytogenes PCR (Not Detect) N. meningitidis (PCR) (Not Detect) Proteus species (PCR) (Not Detect) Serratia marcescens PCR (Not Detect) Staphylococcus sp PCR (Not Detect) Staph aureus (PCR) (Not Detect) mecA-Methicil Res Gene (Not Detect) Streptococcus sp PCR (Not Detect) Group A Strep (PCR) (Not Detect) Strep agalactiae (PCR) (Not Detect) Strep pneumoniae (PCR) (Not Detect) P. aeruginosa (PCR) (Not Detect) Erik/B-Vanco Res Genes KPC-Carbap Res Gene PCR (Not Detect) 10/12/17 10/12/17 10/13/17 Range/Units 14:14 18:27 14:14 WBC (4.5-11.0) X10^3/uL RBC (4.0-5.2) X10^6/uL Hgb (12.0-16.0) g/dL Hct (36-46) % MCV (80-100) fL MCH (26-34) PG MCHC (30-36) % RDW (11.6-14.8) % Plt Count (150-400) X10^3/uL Neut % (Auto) (50-75) % Lymph % (Auto) (25-40) % [place] % (Auto) (3-14) % Eos % (Auto) (2-4) % Baso % (Auto) (0-2) % Neut # (Auto) (2994-2551) /uL Sodium (137-145) mmol/L Potassium (3.4-5.1) mmol/L Chloride (98-107) mmol/L Carbon Dioxide (22-32) mmol/L BUN (7-17) mg/dL Creatinine (0.52-1.04) mg/dL Estimated GFR (>60) mL/min BUN/Creatinine Ratio (6-22) Glucose (80-110) mg/dL Lactate 5.3 H 4.7 H (0.7-2.1) mmol/L Calcium (8.4-10.2) mg/dL Total Bilirubin (0.2-1.3) mg/dL AST (14-36) IU/L ALT (9-52) IU/L Alkaline Phosphatase (38-126) U/L Total Protein (6.3-8.2) g/dL Albumin (3.5-5.0) g/dL Globulin (1.7-4.1) g/dL Albumin/Globulin Ratio (1.0-2.8) Lipase (23-300) U/L Procalcitonin (<0.5) ng/mL A. baumannii (PCR) Not detected (Not Detect) Malini albicans (PCR) Not detected (Not Detect) C. glabrata (PCR) Not detected (Not Detect) C. krusei (PCR) Not detected (Not Detect) C. parapsilosis (PCR) Not detected (Not Detect) C. tropicalis (PCR) Not detected (Not Detect) Enterobacteriac sp PCR Detected H (Not Detect) E. cloacae complex PCR Not detected (Not Detect) Enterococcus sp PCR Not detected (Not Detect) E. coli (PCR) Detected H (Not Detect) H. influenzae (PCR) Not detected (Not Detect) Klebsiella oxytoca PCR Not detected (Not Detect) Klebsiella pneumoniae Not detected (Not Detect) List. monocytogenes PCR Not detected (Not Detect) N. meningitidis (PCR) Not detected (Not Detect) Proteus species (PCR) Not detected (Not Detect) Serratia marcescens PCR Not detected (Not Detect) Staphylococcus sp PCR Not detected (Not Detect) Staph aureus (PCR) Not detected (Not Detect) mecA-Methicil Res Gene Not detected (Not Detect) Streptococcus sp PCR Not detected (Not Detect) Group A Strep (PCR) Not detected (Not Detect) Strep agalactiae (PCR) Not detected (Not Detect) Strep pneumoniae (PCR) Not detected (Not Detect) P. aeruginosa (PCR) Not detected (Not Detect) Erik/B-Vanco Res Genes Not Reportable KPC-Carbap Res Gene PCR Not detected (Not Detect) Discharge Plan Departure Patient Disposition: [facility] Clinical Impression: Sepsis, Acute pyelonephritis, Bilateral nephrolithiasis Discharge Date/Time: 10/12/17 21:35 Interventions: ED Discharge Assessment Last Done: 10/12/17 21:32 Prescriptions: No Action hydrochlorothiazide 25 MG tablet 25 mg PO QDAY Qty: 0 RF: 0 oxybutynin chloride 5 mg Tablet 5 mg PO BID RF: 0 lisinopril 20 mg tablet 20 mg PO DAILY RF: 0 amlodipine 5 mg tablet 5 mg PO DAILY RF: 0 tamsulosin 0.4 mg capsule 0.4 mg PO DAILY RF: 0 hydrocodone-acetaminophen 5-325 mg tablet 1 tab PO Q4H PRN (Reason: Pain, Moderate) RF: 0 <Yadira Medley DO - Last Filed: 10/13/17 06:39> Sign Out Provider Sign Out Attestation: 10/13/2017 6:30 a.m. The lab called she has 2 positive blood cultures growing E coli. Results have been faxed down to [facility].
[2017-10-12 12:40] LABS: Add Manual Diff / Slide Review NO; Basophils Percent Auto 0.1 % (0-2); Eosinophils Percent Auto 0.1 % (2-4); Hematocrit 43.8 % (36-46); Hemoglobin 15.1 g/dL (12.0-16.0); Lymphocytes Percent Auto 4.5 % (25-40); Mean Corpuscular HGB Conc 34.6 % (30-36); Mean Corpuscular Hemoglobin 31.7 PG (26-34); Mean Corpuscular Volume 91.6 fL (80-100); Monocytes Percent Auto 0.7 % (3-14); Neutrophils Absolute Auto 4500 /uL (3000-5900); Neutrophils Percent Auto 94.6 % (50-75); Platelet Count 201 X10^3/uL (150-400); Red Blood Cell Count 4.78 X10^6/uL (4.0-5.2); Red Cell Distribution Width 13.7 % (11.6-14.8); White Blood Cell Count 4.7 X10^3/uL (4.5-11.0)
[2017-10-12 12:46] LABS: Alanine Aminotransferase 19 IU/L (9-52); Albumin Globulin Ratio 1.3 (1.0-2.8); Alkaline Phosphatase 102 U/L (38-126); Aspartate Aminotransferase 36 IU/L (14-36); BUN Creatinine Ratio 10.8 (6-22); Bilirubin Total 1.2 mg/dL (0.2-1.3); Blood Urea Nitrogen 14 mg/dL (7-17); Calcium 9.4 mg/dL (8.4-10.2); Carbon Dioxide 23 mmol/L (22-32); Chloride 101 mmol/L (98-107); Globulin 3.1 g/dL (1.7-4.1); Glucose 145 mg/dL (80-110); HEMOLYSIS < 15 (0-50); Lipase 25 U/L (23-300); Potassium 2.8 mmol/L (3.4-5.1); Sodium 141 mmol/L (137-145); Total Protein 7.1 g/dL (6.3-8.2)
--- NOTE | 2017-10-12 12:55 | DI.CT.S_ITS ---
PROCEDURE: CT KIDNEY URETER BLADDER (KUB) INDICATIONS: Bilateral lower abdominal pain TECHNIQUE: Noncontrast 5 mm thick sections acquired from the diaphragms to the symphysis. 5 mm thick coronal and sagittal reformats were then performed. For radiation dose reduction, the following was used: automated exposure control, adjustment of mA and/or kV according to patient size. COMPARISON: [facility], CT, CT ABDOMEN PELVIS WO CON, 08/18/2017, 22:43. FINDINGS: Image quality: Excellent. Lung bases: Bibasilar atelectasis. Heart size is normal. Urinary system: Bilateral nephrolithiasis is again noted. There is moderate left perinephric fat stranding that is new. Left hydronephrosis is present with dilatation of the ureter proximal to a obstructing 6 mm stone, attenuation 1039, located within the proximal left ureter at the L5 level. There is also mild right hydronephrosis secondary to an obstructing 5 mm stone in the proximal ureter at the L4 level. There is also a 6 mm stone in the left posterior urinary bladder not present previously. Other solid organs: Liver is normal in size. Gallbladder appears normal. Pancreas is normal in contours. Spleen is normal in size. No adrenal nodules. Peritoneum and bowel: Unenhanced bowel loops demonstrate normal wall thickness and caliber. Mild uncomplicated colonic diverticulosis. Appendix is not seen. No free fluid or air. Nodes and vessels: No retroperitoneal or mesenteric adenopathy by size criteria. Aorta and inferior vena cava are normal in caliber. Abdominal wall: No ventral hernias. Pelvis: No free pelvic fluid. No inguinal hernias or adenopathy. Bones: No suspicious bony lesions. No vertebral body compression fractures. IMPRESSION: 1. Bilateral nephrolithiasis. 2. Bilateral hydroureteronephrosis secondary to stones in the proximal ureters. Left perinephric fat stranding is evident. 3. Calcification in the dependent bladder compatible with recently passed stone. Dictated by: Chi Yan M.D. on 10/12/2017 at 13:42 Approved by: Chi Yan M.D. on 10/12/2017 at 14:01
[2017-10-12] MEDS: ONDANSETRON 4 MG/2 ML INJ IV ×2 (13:08→21:28)
[2017-10-12] MEDS: SODIUM CHLORIDE 0.9% 1,000 ML 1000 ML IV ×2 (13:08→14:00)
--- NOTE | 2017-10-12 13:54 | PC.NURSE ---
pt awake alert. but bp 71/48 hr 98 left, r 73/45 hr 98/ pelroy to see/ labs drawn
--- NOTE | 2017-10-12 14:17 | DI.RAD.S_ITS ---
PROCEDURE: XR CHEST 1V INDICATIONS: Decreased blood pressure TECHNIQUE: One view of the chest was acquired. COMPARISON: [facility], CR, XR CHEST 1V, 08/18/2017, 22:03. FINDINGS: Surgical changes and devices: None. Lungs and pleura: No pleural effusions or pneumothorax. Lungs are clear except for minimal scar or atelectasis at the left base projecting through the diaphragm. Mediastinum: Mediastinal contours appear normal. Heart size is normal. Bones and chest wall: No suspicious bony lesions. Overlying soft tissues appear unremarkable. IMPRESSION: Minimal left basilar scar or atelectasis again noted, otherwise no acute cardiopulmonary abnormality is seen Dictated by: Chi Yan M.D. on 10/12/2017 at 14:36 Approved by: Chi Yan M.D. on 10/12/2017 at 14:38
[2017-10-12 14:36] LABS: Lactate (Lactic Acid) 5.3 mmol/L (0.7-2.1)
--- NOTE | 2017-10-12 14:43 | DI.US.S_ITS ---
PROCEDURE: US ABDOMEN COMPLETE INDICATIONS: PAIN TECHNIQUE: Real-time scanning was performed of the abdominal and retroperitoneal organs, with image documentation. COMPARISON: [facility], CT, CT KIDNEY URETER BLADDER (KUB), 10/12/2017, 13:07. FINDINGS: Liver: Liver is normal in size and hyperechoic in echotexture. There is an area of focal sparing near the gallbladder fossa measuring 14 x 16 x 42 mm. Gallbladder: Gallbladder is clear with normal wall thickness. Biliary ducts: Intrahepatic bile ducts are non-dilated. Extrahepatic bile duct caliber measures 6.1 mm. Normal is 6-7 mm or less in diameter, or 10 mm or less post-cholecystectomy. Pancreas: Visualized portions of the pancreas are sonographically normal. Spleen: Spleen is normal in size and homogeneous in echotexture. Kidneys: Kidneys are normal in size and echotexture. Right kidney measures 12.5 cm long; left kidney measures 12.8 cm long. Left hydronephrosis is again evident with an 8mm calcification seen in the lower pole collecting system. No solid masses. Aorta: Visualized aorta is normal in caliber at less than 3 cm. Iliacs: Iliac vessels are obscured by bowel gas IVC: Intrahepatic inferior vena cava is patent. Miscellaneous: No free abdominal fluid. IMPRESSION: 1. Left hydronephrosis and nephrolithiasis is documented. More complete evaluation of the kidneys, ureters and bladder by CT KUB of same day. 2. Mild hepatic steatosis. Dictated by: Chi Yan M.D. on 10/12/2017 at 15:30 Approved by: Chi Yan M.D. on 10/12/2017 at 15:35
--- NOTE | 2017-10-12 15:00 | PC.NURSE ---
got pt up to the commode and she was not able to urinate. I suggested cathing her but she is refusing that. pt not symptomatic while up to commode. She just complaining of being tired and parched. 2 liters of normal saline have infused.
[2017-10-12 15:30] LABS: Procalcitonin 16.57 ng/mL (<0.5)
[2017-10-12] MEDS: POTASSIUM CHLORIDE 20 MEQ TAB 40 MEQ PO (15:37)
[2017-10-12] MEDS: TAMSULOSIN 0.4 MG CAPSULE PO (15:37)
[2017-10-12] MEDS: LACTATED RINGERS 1,000 ML 150 ML IV (15:53)
[2017-10-12] MEDS: CEFTRIAXONE 2 GM/50 ML FROZ.PIGGY IV (15:59)
[2017-10-12] MEDS: LACTATED RINGERS 1,000 ML 200 ML IV (17:40)
[2017-10-12 18:16] LABS: Reflexed Lactate in 2 Hours Y
[2017-10-12 18:43] LABS: Lactate 2HR (Lactic Acid Rflx) 4.7 mmol/L (0.7-2.1)
--- NOTE | 2017-10-12 19:21 | PC.NURSE ---
gave report to nurse Nobles accepting pt at [facility].Vega will give any updates.
[2017-10-12] MEDS: HYDROMORPHONE 1 MG INJ 0.5 MG IV (20:13)
--- NOTE | 2017-10-12 20:39 | PC.NURSE ---
16fr catheter placed, yellow urine returned, pt tolerated well. leg anchor placed. Susanne SCHWARZ assisted.
--- NOTE | 2017-10-12 20:44 | PC.NURSE ---
provider notified of bp, HR, and Temp. Provider responded HR must be because of pain. No order recieved
[2017-10-12] MEDS: ACETAMINOPHEN 325 MG TABLET 975 MG PO (21:13)
[2017-10-13 06:08] LABS: Acinetobacter baumannii Not Detected (Not Detect); Enterobacteriaceae species Detected (Not Detect); Enterococcus species Not Detected (Not Detect); Listeria monocytogenes Not Detected (Not Detect); Methicillin-resistant gene Not Detected (Not Detect); Staphylococcus species Not Detected (Not Detect); Streptococcus agalactiae (Gr B Not Detected (Not Detect); Streptococcus pneumonia Not Detected (Not Detect); Streptococcus pyogenes (Gr A) Not Detected (Not Detect); Streptococcus species Not Detected (Not Detect)
[2017-10-13 06:09] LABS: Candida albicans Not Detected (Not Detect); Candida glabrata Not Detected (Not Detect); Candida krusei Not Detected (Not Detect); Candida parapsilosis Not Detected (Not Detect); Candida tropicalis Not Detected (Not Detect); Enterobacter cloacae complex Not Detected (Not Detect); Haemophilus influenzae Not Detected (Not Detect); KPC (carbapenem-resist gene) Not Detected (Not Detect); Neisseria meningitidis Not Detected (Not Detect); Proteus species Not Detected (Not Detect); Pseudomonas aeruginosa Not Detected (Not Detect); Serratia marcescens Not Detected (Not Detect)
[2017-10-13 06:10] LABS: E. coli Detected (Not Detect)
== END 2017-10-12 21:35 | disposition short-term general hospital (02) ==
PROVIDERS: Emergency Provider Nurse Practitioner Family; Family Provider Nurse Practitioner Family; PCP Nurse Practitioner Family
DX: A41.51 Sepsis due to Escherichia coli [E. coli] (principal); N10 Acute pyelonephritis; N20.0 Calculus of kidney
CPT/HCPCS: 36415; 36591; 51701; 51798; 71045; 74176; 76700; 80053; 81003; 83605; 83690; 84145; 85025; 87040; 87077; 87150; 87186; 87205; 96361; 96365; 96375; 96376; 99285; 99291; J0696; J1170; J2405

== ENCOUNTER → 2018-03-26 15:42 | Outpatient (REF) | payer MEDICARE, SELFPAY ==
[2017-08-19 04:11] VITALS: BMI 27.1
== END ==
LOC: LAB 15:42
PROVIDERS: Visit Provider Nurse Practitioner Family
DX: R10.9 Unspecified abdominal pain (principal)
CPT/HCPCS: 87077; 87086

== ENCOUNTER → 2018-03-29 14:19 | Outpatient (CLI) | payer MEDICARE, SELFPAY ==
[2017-08-19 04:11] VITALS: BMI 27.1
--- NOTE | 2018-03-29 | DI.CT.S_ITS ---
PROCEDURE: CT KIDNEY URETER BLADDER (KUB) INDICATIONS: FLANK PAIN TECHNIQUE: Noncontrast 5 mm thick sections acquired from the diaphragms to the symphysis. 5 mm thick coronal and sagittal reformats were then performed. For radiation dose reduction, the following was used: automated exposure control, adjustment of mA and/or kV according to patient size. COMPARISON: [facility], CT, CT KIDNEY URETER BLADDER (KUB), 10/12/2017, 13:07. FINDINGS: Image quality: Excellent. Lung bases: Lung bases are clear. Heart size is normal. Urinary system: Both kidneys are normal in size. There are multiple bilateral nonobstructing renal calculi, the largest of which measures 8 mm on the left and 6 mm on the right.. No hydronephrosis or perinephric fat stranding. Both ureters appear non-dilated throughout their expected courses. Bladder wall thickness is normal; no calcified bladder stones. Other solid organs: Liver is normal in size. Gallbladder is unremarkable. Pancreas is normal in contours. Spleen is normal in size. No adrenal nodules. Peritoneum and bowel: Unenhanced bowel loops demonstrate normal wall thickness and caliber. The appendix is not visualized; however there is no discrete right lower quadrant fluid or fat stranding to suggest acute appendicitis. There are scat extensive colonic diverticula. No evidence for diverticulitis. No free fluid or air. Nodes and vessels: No retroperitoneal or mesenteric adenopathy by size criteria. Aorta and inferior vena cava are normal in caliber. There are scattered atheromatous calcifications throughout the aorta and iliac arteries bilaterally. Abdominal wall: No ventral hernias. Pelvis: No free pelvic fluid. No inguinal hernias or adenopathy. The uterus and ovaries are grossly unremarkable. Bones: No suspicious bony lesions. No vertebral body compression fractures. IMPRESSION: 1. Bilateral nephrolithiasis. No hydronephrosis, hydroureter, or ureterolithiasis. 2. No acute intra-abdominal findings. The appendix is not visualized; however there are no ancillary findings to suggest acute appendicitis. 3. Colonic diverticulosis. No findings to suggest acute diverticulitis. Dictated by: Kerri Reyes M.D. on 03/29/2018 at 15:20 Approved by: Kerri Reyes M.D. on 03/29/2018 at 15:27
== END ==
PROVIDERS: Family Provider Nurse Practitioner Family; PCP Nurse Practitioner Family; Visit Provider Nurse Practitioner Family
DX: R10.9 Unspecified abdominal pain (principal); N20.0 Calculus of kidney; K57.90 Diverticulosis of intestine, part unspecified, without perforation or abscess without bleeding
CPT/HCPCS: 74176

== ENCOUNTER → 2018-04-22 15:40 | Outpatient (CLI) | payer MEDICARE, SELFPAY ==
[2017-08-19 04:11] VITALS: BMI 27.1
--- NOTE | 2018-04-22 | DI.RAD.S_ITS ---
PROCEDURE: XR KUB INDICATIONS: KIDNEY STONES TECHNIQUE: One view of the abdomen acquired. COMPARISON: Recent prior CT KUB was obtained, and shows commensurate calcifications on the left. [facility], CT, CT KIDNEY URETER BLADDER (KUB), 03/29/2018, 14:36. [facility], CR, KUB XRAY (1 VIEW ABDOMEN), 07/19/2014, 8:02. [facility], CR, KUB XRAY (1 VIEW ABDOMEN), 06/14/2014, 14:02. FINDINGS: Surgical changes and devices: None. Bowel: Bowel gas pattern is normal. Soft tissues: No new suspicious abdominal calcifications. Visualized solid organ contours appear normal in size. Bones: No suspicious bony lesions. IMPRESSION: Nonspecific bowel gas pattern. Several small calcifications are seen over the lower third collecting system area of the left kidney, significantly smaller in size and quantity of calcification when compared to the prior study from May 2014 by plain film. Dictated by: Sukhjinder Quinn M.D. on 04/22/2018 at 16:30 Approved by: Sukhjinder Quinn M.D. on 04/22/2018 at 16:31
== END ==
PROVIDERS: Family Provider Urology; PCP Nurse Practitioner Family; Visit Provider Nurse Practitioner Family
DX: N20.0 Calculus of kidney (principal); R31.9 Hematuria, unspecified
CPT/HCPCS: 74018

== ENCOUNTER → 2018-06-08 15:04 | Outpatient (CLI) | payer MEDICARE, SELFPAY ==
[2017-08-19 04:11] VITALS: BMI 27.1
--- NOTE | 2018-06-08 | DI.RAD.S_ITS ---
PROCEDURE: XR KUB INDICATIONS: RENAL STONES TECHNIQUE: One view of the abdomen acquired. COMPARISON: [facility], CT, CT KIDNEY URETER BLADDER (KUB), 03/29/2018, 14:36. [facility], CR, XR KUB, 04/22/2018, 15:45. [facility], CR, KUB XRAY (1 VIEW ABDOMEN), 07/19/2014, 8:02. FINDINGS: Surgical changes and devices: None. Bowel: Bowel gas pattern is normal. Soft tissues: No new suspicious abdominal calcifications, and again noted are clustered calcifications within the lower third collecting system calyces of the right kidney and also to larger and more numerous lower third left renal collecting system calculi. Overall this do not appear to have changed in number or size from the comparison CT 03/29/18. Several pelvic phleboliths are again noted greater on the right than the left. Visualized solid organ contours appear normal in size. Bones: No suspicious bony lesions. IMPRESSION: Stable appearing small calculi present within the lower third collecting systems of the kidneys bilaterally, greater on the left than the right, without ureteral calculus found. Dictated by: Sukhjinder Quinn M.D. on 06/08/2018 at 16:15 Approved by: Sukhjinder Quinn M.D. on 06/08/2018 at 16:17
== END ==
PROVIDERS: PCP Nurse Practitioner Family; Visit Provider Nurse Practitioner Family
DX: N20.0 Calculus of kidney (principal)
CPT/HCPCS: 74018

== ENCOUNTER → 2018-11-03 13:38 | Outpatient (CLI) | payer MEDICARE, SELFPAY ==
[2017-08-19 04:11] VITALS: BMI 27.1
--- NOTE | 2018-11-03 | DI.RAD.S_ITS ---
PROCEDURE: XR KUB INDICATIONS: HISTORY OF KIDNEY STONES TECHNIQUE: One view of the abdomen acquired. COMPARISON: [facility], CT, CT KIDNEY URETER BLADDER (KUB), 03/29/2018, 14:36. [facility], CR, XR KUB, 06/08/2018, 15:30. [facility], CR, XR KUB, 04/22/2018, 15:45. FINDINGS: Surgical changes and devices: None. Bowel: Bowel gas pattern is normal. Soft tissues: No previously unidentified suspicious abdominal calcifications. Multiple left-sided collecting system calculi are again seen equivalent in size and number to that previously present during CT scanning in March of this year. Visualized solid organ contours appear normal in size. Smaller and less numerous calculi are seen at the lower third collecting system also of the right kidney. These were previously present without definite change control analyst time. Bones: No suspicious bony lesions. IMPRESSION: Bilateral lower third collecting system calculi are present, greater in number and size on the left than the right. Dictated by: Sukhjinder Quinn M.D. on 11/03/2018 at 14:11 Approved by: Sukhjinder Quinn M.D. on 11/03/2018 at 14:12
== END ==
PROVIDERS: PCP Nurse Practitioner Family; Visit Provider Nurse Practitioner Family
DX: N20.0 Calculus of kidney (principal); Z87.442 Personal history of urinary calculi
CPT/HCPCS: 74018

== ENCOUNTER → 2019-11-30 13:24 | Outpatient (CLI) | payer MEDICARE, SELFPAY ==
[2017-08-19 04:11] VITALS: BMI 27.1
--- NOTE | 2019-11-30 | DI.CT.S_ITS ---
PROCEDURE: CT KIDNEY URETER BLADDER (KUB) INDICATIONS: Calculus of kidney TECHNIQUE: Noncontrast 5 mm thick sections acquired from the diaphragms to the symphysis. 5 mm thick coronal and sagittal reformats were then performed. For radiation dose reduction, the following was used: automated exposure control, adjustment of mA and/or kV according to patient size. COMPARISON: [facility], CT, CT KIDNEY URETER BLADDER (KUB), 03/29/2018, 14:36. [facility], CT, CT KIDNEY URETER BLADDER (KUB), 10/12/2017, 13:07. FINDINGS: Image quality: Excellent. Lung bases: Lung bases are clear. Heart size is normal. Urinary system: Both kidneys are normal in size. As was previously the case 03/29/18 nonobstructive calculi can be seen within the collecting system of each kidney, with the largest calculi present at the lower 3rd collecting system of the right kidney, measuring up to 7 mm posteriorly and 10 mm more anteriorly. The largest calculus within the lower 3rd collecting system of the left kidney is 5 mm. kidney stones. No hydronephrosis or perinephric fat stranding. Both ureters appear non-dilated throughout their expected courses. Bladder wall thickness is normal; no calcified bladder stones. Other solid organs: Liver is normal in size. Gallbladder appears normal . Pancreas is normal in contours. Spleen is normal in size. No adrenal nodules. Peritoneum and bowel: Unenhanced bowel loops demonstrate normal wall thickness and caliber. No free fluid or air. Nodes and vessels: No retroperitoneal or mesenteric adenopathy by size criteria. Aorta and inferior vena cava are normal in caliber. Abdominal wall: No ventral hernias. Pelvis: No free pelvic fluid. No inguinal hernias or adenopathy. Extensive sigmoid diverticulosis without acute diverticulitis. Bones: No suspicious bony lesions. No vertebral body compression fractures. IMPRESSION: 1. Multiple nonobstructive renal collecting system calculi are again seen within the kidneys bilaterally, right greater than left, with the largest calculus measuring up to 10 mm in diameter. 2. There is a prominent degree of sigmoid diverticulosis without acute diverticulitis at this time. 3. Through the kidneys bilaterally and through the visualized urothelium no underlying infection or neoplasm is suspected. Dictated by: Sukhjinder Quinn M.D. on 11/30/2019 at 14:47 Approved by: Sukhjinder Quinn M.D. on 11/30/2019 at 14:52
== END ==
PROVIDERS: PCP Student in an Organized Health Care Education/Training Program; Referring Provider Student in an Organized Health Care Education/Training Program; Visit Provider Urology
DX: N20.0 Calculus of kidney (principal); K57.30 Diverticulosis of large intestine without perforation or abscess without bleeding
CPT/HCPCS: 74176

== ENCOUNTER 2021-10-27 12:23 | Emergency (ER) | payer MEDICARE, SELFPAY ==
[2017-08-19 04:11] VITALS: BMI 27.1
[2021-10-27 12:52] VITALS: BP 164/99; PULSE 70; RESP 18; TEMP 36.3; O2SAT 97; BMI 25.0
[2021-10-27 13:21] LABS: Add Manual Diff / Slide Review NO; Basophils Absolute Auto 100 /uL (0-100); Basophils Percent Auto 0.7 % (0-2); Eosinophils Absolute Auto 100 /uL (0-450); Eosinophils Percent Auto 1.2 % (2-4); Hematocrit 44.6 % (36-46); Hemoglobin 15.3 g/dL (12.0-16.0); Lymphocytes Absolute Auto 1300 /uL (1100-4500); Lymphocytes Percent Auto 17.2 % (25-40); Mean Corpuscular HGB Conc 34.4 % (30-36); Mean Corpuscular Volume 90.1 fL (80-100); Monocytes Absolute Auto 600 /uL (0-900); Monocytes Percent Auto 7.8 % (3-14); Neutrophils Absolute Auto 5400 /uL (1500-7000); Neutrophils Percent Auto 73.1 % (50-75); Platelet Count 249 X10^3/uL (150-400); Red Blood Cell Count 4.95 X10^6/uL (4.0-5.2); Red Cell Distribution Width 13.3 % (11.6-14.8); White Blood Cell Count 7.4 X10^3/uL (4.5-11.0)
--- NOTE | 2021-10-27 14:28 | PC.NURSE ---
1411: Pt VDC. Given paperwork by LEATHA Gould and signed appropriately. Made aware of risks. IV discontinued. Pt ambulated out of ED with steady gait. Pt states I think i am starting to pass it bc im feeling better so im going to go home Pt made aware she can come back if shes having pain at any time.
[2021-10-27 14:56] LABS: Alanine Aminotransferase 17 IU/L (<35); Albumin 4.4 g/dL (3.5-5.0); Albumin Globulin Ratio 1.2 (1.0-2.8); Alkaline Phosphatase 123 U/L (38-126); Aspartate Aminotransferase 25 IU/L (14-36); BUN Creatinine Ratio 17.2 (6-22); Bilirubin Total 0.4 mg/dL (0.2-1.3); Blood Urea Nitrogen 15 mg/dL (7-17); Calcium 9.5 mg/dL (8.4-10.2); Carbon Dioxide 26 mmol/L (22-32); Chloride 108 mmol/L (98-107); Estimated Glomerular Filt Rate > 60 mL/min (>60); Globulin 3.6 g/dL (1.7-4.1); Glucose 100 mg/dL (80-110); HEMOLYSIS < 15 (0-50); Lipase 56 U/L (23-300); Potassium 4.2 mmol/L (3.4-5.1); Sodium 141 mmol/L (137-145)
== END 2021-10-27 14:32 | disposition left against medical advice (07) ==
PROVIDERS: Emergency Provider Emergency Medicine; PCP Student in an Organized Health Care Education/Training Program
DX: R10.9 Unspecified abdominal pain (principal); Z87.442 Personal history of urinary calculi
CPT/HCPCS: 80053; 83690; 85025; 99281

== ENCOUNTER → 2021-11-05 13:34 | Outpatient (CLI) | payer MEDICARE, SELFPAY ==
[2017-08-19 04:11] VITALS: BMI 27.1
--- NOTE | 2021-11-05 | DI.CT.S_ITS ---
PROCEDURE: CT KIDNEY URETER BLADDER (KUB) INDICATIONS: Calculus of kidney TECHNIQUE: Axial sections were acquired from the lung bases to the pubic symphysis. Coronal and sagittal reformats were performed. For radiation dose reduction, the following was used: automated exposure control, adjustment of mA and/or kV according to patient size. COMPARISON: [facility], CT, CT KIDNEY URETER BLADDER (KUB), 03/29/2018, 14:36. [facility], CT, CT KIDNEY URETER BLADDER (KUB), 10/12/2017, 13:07. [facility], CT, CT KIDNEY URETER BLADDER (KUB), 11/30/2019, 14:01. FINDINGS: Image quality: Excellent. Lung bases: Right middle lobe and lingula scars and atelectasis. Small hiatal hernia. Heart: No significant findings. URINARY: Right Kidney: Multiple stones. The largest stone is in the inferior pole measuring 0.8 x 1.1 cm, demonstrating CT density 970.8 HU. No hydronephrosis. Right Ureter: No ureteral stones or hydroureter. Left Kidney: Multiple stones. The largest stone is in the inferior pole measuring 0.5 x 0.9 cm, demonstrating CT density 595 HU. No hydronephrosis. Left Ureter: No ureteral stones or hydroureter. Bladder: Bladder wall is mildly thickened. No stones. ABDOMEN: Liver: Unremarkable. Gallbladder: Unremarkable. Biliary ducts: Unremarkable. Pancreas: Unremarkable. Spleen: Unremarkable. Adrenal Glands: Unremarkable. Stomach and Bowel: Stomach, small bowel loops, and colon are unremarkable. Diverticulosis. No acute diverticulitis. Peritoneum: No abnormal intraperitoneal fluid. No free air. Ventral Wall: No hernia. Abdominal Nodes: No enlarged retroperitoneal or mesenteric lymph nodes. Vessels: Aorta and inferior vena cava are normal in size. Mild to moderate atherosclerotic calcifications. PELVIS: Pelvic Organs: Age appropriate atrophy of uterus. Ovaries are not visualized. No free fluid in the cul-de-sac or adnexa. Pelvic Nodes: Unremarkable. Miscellaneous: No inguinal hernias are seen. 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 IMPRESSION: 1. Nephrolithiasis bilaterally. No findings to suggest urinary obstruction. 2. Mild bladder wall thickening. No bladder stones. 3. Diverticulosis without diverticulitis. Dictated by: Venkat Beaver M.D. on 11/05/2021 at 17:37 Approved by: Venkat Beaver M.D. on 11/06/2021 at 7:51
== END ==
PROVIDERS: PCP Student in an Organized Health Care Education/Training Program; Referring Provider Physician Assistant; Visit Provider Physician Assistant
DX: N20.0 Calculus of kidney (principal); K57.90 Diverticulosis of intestine, part unspecified, without perforation or abscess without bleeding
CPT/HCPCS: 74176

== ENCOUNTER → 2023-05-12 | Outpatient (CLI) | payer MEDICARE, SELFPAY ==
[2017-08-19 04:11] VITALS: BMI 27.1
--- NOTE | 2023-05-12 09:44 | DI.CT.S_ITS ---
PROCEDURE: CT ABDOMEN PELVIS WO CON INDICATIONS: suspected kidney stone TECHNIQUE: Axial sections were acquired from the lung bases to the pubic symphysis. Coronal and sagittal reformats were performed. For radiation dose reduction, the following was used: automated exposure control, adjustment of mA and/or kV according to patient size. COMPARISON: [facility], CT, CT ABDOMEN PELVIS WO CON, 08/18/2017, 22:43. FINDINGS: Image quality: Diagnostic. Lower Chest: No significant findings. URINARY: Right Kidney: Moderate burden of punctate nephrolithiasis. Severe hydronephrosis. Right Ureter: 3-4 obstructing stones within the proximal right ureter, largest measuring 6.5 millimeters. Hounsfield units range from 5177-4465 HU. Left Kidney: Large burden nephrolithiasis, with Hounsfield units above 1000. Largest measures 7 millimeters (series 2, image 41). Left Ureter: 3-4 millimeter obstructing stone in the proximal left ureter. Bladder: Normal wall thickness. No stones. ABDOMEN: Liver: No contour-deforming solid mass. Gallbladder: No radiopaque gallstones or wall thickening. Biliary ducts: No biliary dilation. Pancreas: Fat stranding of the tail the pancreas. Spleen: Size is within normal limits. Adrenal Glands: No adrenal nodules. Stomach and Bowel: Normal colonic caliber, without significant wall thickening. Colonic diverticulosis without evidence of diverticulitis. Peritoneum: No abnormal intraperitoneal fluid. No free air. Ventral Wall: No hernia. Abdominal Nodes: No enlarged retroperitoneal or mesenteric lymph nodes. Vessels: Aorta and inferior vena cava are normal in size. PELVIS: Pelvic Organs: Unremarkable. Pelvic Nodes: Unremarkable. Miscellaneous: No inguinal hernias are seen. Bones: Unremarkable. IMPRESSION: 3-4 obstructing stones within the proximal right ureter, largest measuring 6.5 millimeters. Hounsfield units range from 8285-9045 HU. 3-4 millimeter obstructing stone in the proximal left ureter. Large burden of bilateral nephrolithiasis. Fat stranding in the tail the pancreas, which may indicate acute pancreatitis. Correlate with lipase. A message was left for the ordering provider to review the results. Dictated by: Randy Cali M.D. on 05/12/2023 at 11:09 Approved by: Randy Cali M.D. on 05/12/2023 at 11:19
== END ==
PROVIDERS: PCP Family Medicine; Referring Provider Physician Assistant; Visit Provider Physician Assistant
DX: N13.2 Hydronephrosis with renal and ureteral calculous obstruction (principal); N39.0 Urinary tract infection, site not specified; K57.90 Diverticulosis of intestine, part unspecified, without perforation or abscess without bleeding
CPT/HCPCS: 74176

== ENCOUNTER 2023-10-25 10:55 | Emergency (ER) | payer MEDICARE, SELFPAY ==
[2017-08-19 04:11] VITALS: BMI 27.1
[2023-10-25 11:18] VITALS: BP 179/87; PULSE 73; RESP 16; TEMP 36.6; O2SAT 96; BMI 26.6
--- NOTE | 2023-10-25 11:46 | ED_ITS ---
HPI - Female Genitourinary <Osmin Mckeon PA-C - Last Filed: 10/25/23 11:59> General Chief complaint: Urogenital-Female Stated complaint: poss uti/bladder infection Time Seen by Provider: 10/25/23 11:46 Source: patient Mode of arrival: Ambulatory History of Present Illness HPI Narrative: This is a 83-year-old female presents emergency department due to dysuria, urinary frequency, foul odor for the last couple days. She also reports vague episodes of lower back pain. Denies any fevers, chills, nausea, vomiting, or any other concerning signs or symptoms. Denies any vaginal discharge. Denies any abdominal pain. No recent travel, antibiotic use, or inpatient stays. Related Data Home Medications Medication Instructions Recorded Confirmed hydrochlorothiazide 25 mg tablet 25 mg PO QDAY ##0 10/18/12 10/12/17 oxybutynin chloride 5 mg tablet 5 mg PO BID 08/19/17 10/12/17 amlodipine 5 mg tablet 5 mg PO DAILY 10/12/17 10/12/17 hydrocodone 5 mg-acetaminophen 325 1 tab PO Q4H PRN Pain, Moderate 10/12/17 10/12/17 mg tablet lisinopril 20 mg tablet 20 mg PO DAILY 10/12/17 10/12/17 tamsulosin 0.4 mg capsule 0.4 mg PO DAILY 10/12/17 10/12/17 Previous Rx's Medication Instructions Recorded nitrofurantoin 100 mg PO Q12H 5 days #10 caps 10/25/23 monohydrate/macrocrystals 100 mg capsule (Macrobid) nitrofurantoin 100 mg PO Q12H 5 days #10 caps 10/25/23 monohydrate/macrocrystals 100 mg capsule (Macrobid) Allergies Allergy/AdvReac Type Severity Reaction Status Date / Time codeine AdvReac Intermediate NAUSEA Verified 10/25/23 11:18 hydromorphone AdvReac Intermediate ITCHING Verified 10/25/23 11:18 oxycodone AdvReac Mild ITCHING Verified 10/25/23 11:18 Review of Systems <Osmin Mckeon PA-C - Last Filed: 10/25/23 11:59> Review of Systems Narrative: GENERAL: Denies chills, fatigue, malaise, fever, sweats. HEENT: Denies sinus pain, ear pain, sore throat, difficulty swallowing, dizziness. RESPIRATORY: Denies dyspnea, cough, wheezing, hemoptysis, sputum. CARDIOVASCULAR: Denies chest pain, palpitations, orthopnea, edema, GASTROINTESTINAL: Denies nausea, vomiting, abdominal pain, diarrhea, constipation, melena. : Reports dysuria, urinary frequency, foul odor, denies hematuria MUSCULOSKELETAL: Reports lower back pain occasionally SKIN: Denies rash, skin lesions, or other NEUROLOGIC: Denies weakness, headache, numbness, change in speech, confusion, seizures, incoordination. PSYCHIATRIC: No concerning psychosocial issues. 12 point review of systems is negative except for those stated above Patient History <Osmin Mckeon PA-C - Last Filed: 10/25/23 11:59> Medical History HTN (hypertension) Kidney stones Smokeless tobacco use Surgical History (System 03/29/18 @ 08:57 by Mar Bill) Hx of appendectomy Hx of lithotripsy alcohol intake frequency: 0-2 drinks per day Substance Use Type: does not use Exam <Osmin Mckeon PA-C - Last Filed: 10/25/23 11:59> Narrative Exam Narrative: GENERAL: Well-developed patient, in mild distress. HEAD: Atraumatic. Normocephalic. EYES: Pupils equal round and reactive. Extraocular motions intact. No scleral icterus. No injection or drainage. ENT: Nose without bleeding, purulent drainage. Throat without erythema, tonsillar hypertrophy or exudate. Airway patent. NECK: Trachea midline. Non tender EXTREMITIES: No edema or joint tenderness. NEURO: AOx3. SKIN: No rash or erythema of visible areas Back: No CVA tenderness to palpation Initial Vital Signs Initial Vital Signs: Vital Signs Temperature 97.8 F 10/25/23 11:18 Pulse Rate 73 10/25/23 11:18 Respiratory Rate 16 10/25/23 11:18 Blood Pressure 179/87 H 10/25/23 11:18 Pulse Oximetry 96 10/25/23 11:18 Oxygen Delivery Method Room Air 10/25/23 11:18 <Rizwana Parada MD - Last Filed: 10/25/23 18:34> Initial Vital Signs Initial Vital Signs: Vital Signs Temperature 97.8 F 10/25/23 11:18 Pulse Rate 73 10/25/23 11:18 Respiratory Rate 16 10/25/23 11:18 Blood Pressure 179/87 H 10/25/23 11:18 Pulse Oximetry 96 10/25/23 11:18 Oxygen Delivery Method Room Air 10/25/23 11:18 Course <Osmin Mckeon PA-C - Last Filed: 10/25/23 11:59> Orders Ordered: ED Orders 10/25/23 11:36 Urine Culture Stat Urine Microscopic Stat Vital Signs Vital signs: Vital Signs - 8 hr 10/25/23 11:18 10/25/23 12:06 Temperature 97.8 F Pulse Rate 73 80 Respiratory Rate 16 18 Blood Pressure 179/87 H 162/77 H Pulse Oximetry 96 96 Oxygen Delivery Method Room Air Room Air <Rizwana Parada MD - Last Filed: 10/25/23 18:34> Orders Ordered: ED Orders 10/25/23 11:36 Urine Culture Stat Urine Microscopic Stat Vital Signs Vital signs: Vital Signs - 8 hr 10/25/23 11:18 10/25/23 12:06 Temperature 97.8 F Pulse Rate 73 80 Respiratory Rate 16 18 Blood Pressure 179/87 H 162/77 H Pulse Oximetry 96 96 Oxygen Delivery Method Room Air Room Air MDM - Female Genitourinary <Osmin Mckeon PA-C - Last Filed: 10/25/23 11:59> Lab Data Labs: Lab Results 10/25/23 Range/Units 11:36 Urine RBC 5-10/hpf H (0-5/HPF) Urine WBC >100/hpf H (0-5/HPF) Ur Squamous Epith Cells None seen (0-5/HPF) Urine Bacteria Moderate (10-30) H (None) Ur Culture Indicated? Specimen cultured Vol Urine Centrifuged 10ml (spun) Urine Dip Bedside Urine Glucose Negative Bedside Urine Bilirubin - Negative Bedside Urine Ketone - Negative Urine Specific [place] 1.010 Bedside Urine Occult Blood +++ Bedside Urine pH 6.5 Bedside Urine Protein + 30 Bedside Urine Urobilinogen - Negative Bedside Urine Nitrite + Positive Bedside Urine Leukocytes +++ 500 Esterase MDM Narrative Medical decision making narrative: ED course: This is a 83-year-old female presents emergency department due to suspected acute simple cystitis based on symptoms. UA positive for leukocytes and nitrites and we will send for culture. No MDR risk factors such as inpatient healthcare facility stay, recent antibiotic use, or world travel. We will treat with oral Macrobid. Patient was describe any kind of sharp abdominal or lower back pain concerning for kidney stone although she does have a history of this. Shared decision-making utilized and no CT ordered. CC: Dysuria Complicating co-morbidities: History of pyelonephritis and nephrolithiasis as below Data collected from: Previous notes Medical records reviewed: Patient was seen here 6 years ago due to acute pyelonephritis leading to sepsis. History of nephrolithiasis. Patient was also had found to have bilateral nephrolithiasis with hydronephrosis 6 years ago.. Patient was eventually transferred to [place] ICU per urology recommendations. Differential considered, but not limited to: Acute simple cystitis, acute complicated cystitis, gonorrhea, chlamydia, nephrolithiasis Exam documented above, pertinent findings include: No CVA tenderness to palpation Lab Test results independently reviewed as above. Pertinent findings: UA positive for leukocytes nitrites, blood Imaging studies independently reviewed: None obtained Scores Used: None MIPS Elements: None Consultations: None Treatments: None Re-evaluations: None Discussion: Discussed plan with the patient was comfortable with the plan Diagnosis: Acute simple cystitis Disposition: see below, along with detailed discharge instructions that have been reviewed with patient as well as indications for ED re-evaluation and additional outpatient follow up <Rizwana Parada MD - Last Filed: 10/25/23 18:34> Lab Data Labs: Lab Results 10/25/23 Range/Units 11:36 Urine RBC 5-10/hpf H (0-5/HPF) Urine WBC >100/hpf H (0-5/HPF) Ur Squamous Epith Cells None seen (0-5/HPF) Urine Bacteria Moderate (10-30) H (None) Ur Culture Indicated? Specimen cultured Vol Urine Centrifuged 10ml (spun) Urine Dip Bedside Urine Glucose Negative Bedside Urine Bilirubin - Negative Bedside Urine Ketone - Negative Urine Specific [place] 1.010 Bedside Urine Occult Blood +++ Bedside Urine pH 6.5 Bedside Urine Protein + 30 Bedside Urine Urobilinogen - Negative Bedside Urine Nitrite + Positive Bedside Urine Leukocytes +++ 500 Esterase Discharge Plan Departure Patient Disposition: Home Clinical Impression: Urinary tract infection Activity Restrictions/Additional Instructions: Thank you for coming to the [facility] Emergency Department today. As we discussed your urine appeared positive for a urinary tract infection. Please take the oral antibiotics as prescribed. Please return to the emergency department if you develop any fevers, nausea, vomiting, chills, or any other concerning signs or symptoms. I hope you feel better soon. Please follow up with your primary care provider within a week if your symptoms continue. If you do not have a primary care provider please contact the [facility] Resource line at [phone]. They will ask some questions about your medical history and help you get set up with a provider in the community. Prescriptions: New nitrofurantoin monohyd/m-cryst [Macrobid] 100 mg capsule 100 mg PO Q12H 5 Days Qty: 10 0RF Rx Instructions: must administer with a meal/food nitrofurantoin monohyd/m-cryst [Macrobid] 100 mg capsule 100 mg PO Q12H 5 Days Qty: 10 0RF Rx Instructions: must administer with a meal/food No Action hydrochlorothiazide 25 MG tablet 25 mg PO QDAY Qty: 0 oxybutynin chloride 5 mg Tablet 5 mg PO BID lisinopril 20 mg tablet 20 mg PO DAILY amlodipine 5 mg tablet 5 mg PO DAILY tamsulosin 0.4 mg capsule 0.4 mg PO DAILY hydrocodone-acetaminophen 5-325 mg tablet 1 tab PO Q4H PRN (Reason: Pain, Moderate) Referrals: Chi Huston MD [Primary Care Provider] - Stand Alone Forms: Patient Portal/API ED Sign-out <Rizwana Parada MD - Last Filed: 10/25/23 18:34> Cosign ED Attending Robert Attestation: I was immediately available in the department for consultation throughout this patient's visit. Rizwana Parada MD
[2023-10-25 12:02] LABS: Bacteria Urine Moderate (10-30); Culture Indicated Urine Specimen Cultured; RBC Urine 5-10/HPF (0-5/HPF); Squamous Epithelial Cell Urine None Seen (0-5/HPF); Urine Volume 10mL (spun); WBC Urine >100/HPF (0-5/HPF)
[2023-10-25 12:06] VITALS: BP 162/77; PULSE 80; RESP 18; O2SAT 96
== END 2023-10-25 12:07 | disposition home or self-care (01) ==
PROVIDERS: Emergency Provider Physician Assistant Medical; PCP Family Medicine
DX: N39.0 Urinary tract infection, site not specified (principal); M54.50 Low back pain, unspecified
CPT/HCPCS: 81003; 81015; 87077; 87086; 87186; 99281; 99282

== ENCOUNTER → 2023-11-24 13:54 | Outpatient (CLI) | payer MEDICARE, SELFPAY ==
[2017-08-19 04:11] VITALS: BMI 27.1
--- NOTE | 2023-11-24 13:55 | DI.US.S_ITS ---
PROCEDURE: US RENAL COMPLETE INDICATIONS: Acute cystitis with hematuria TECHNIQUE: Real-time scanning was performed of the kidneys and bladder, with image documentation. COMPARISON: [facility], CT, CT ABDOMEN PELVIS WO TOYA, 05/12/2023, 9:54. FINDINGS: Kidneys: Kidneys are normal in size. Right kidney measures 10.2 cm long; left kidney measures 10.7 cm long. Right renal cortical thickness is 1.2 cm; left renal cortical thickness is 1.5 cm. Renal cortical echotexture is normal. No hydronephrosis. No suspicious solid mass lesions. Two lower pole calculi in the right kidne , the largest which measures 1.0 x 0.8 x 0.7 cm. Two lower pole calculi in the left kidney, the largest of which measures 0.7 x 0.6 x 0.3 cm. Bladder: Pre-void bladder volume is 275 mL. Post-void residual is 170 mL. Pre-void images demonstrate no intraluminal masses or stones. On pre-void images, bilateral ureteral jets are not identified with color Doppler interrogation. (Of note, ureteral jets may not be detectable in up to 25% of cases due to insufficient differences in specific gravity between ureteral and bladder urine). Miscellaneous: No free pelvic fluid. IMPRESSION: 1. No hydronephrosis. 2. Bilateral nonobstructive calyceal calculi, the largest of which measures 1.0 x 0.8 x 0.7 cm in the right kidney. 3. Mildly increased postvoid residual, compatible with urinary retention. Dictated by: Brayden Carrillo M.D. on 11/24/2023 at 17:10 Approved by: Brayden Carrillo M.D. on 11/24/2023 at 17:15
== END ==
PROVIDERS: PCP Family Medicine; Referring Provider Family Medicine; Visit Provider Family Medicine
DX: N30.01 Acute cystitis with hematuria (principal); R10.9 Unspecified abdominal pain; N20.0 Calculus of kidney; Z93.6 Other artificial openings of urinary tract status
CPT/HCPCS: 76770

== ENCOUNTER → 2024-01-11 15:46 | Outpatient (CLI) | payer MEDICARE, SELFPAY ==
[2017-08-19 04:11] VITALS: BMI 27.1
--- NOTE | 2024-01-11 15:47 | DI.CT.S_ITS ---
PROCEDURE: CT KIDNEY URETER BLADDER (KUB) INDICATIONS: BILATERAL KIDNEY STONES TECHNIQUE: Axial sections were acquired from the lung bases to the pubic symphysis. Coronal and sagittal reformats were performed. For radiation dose reduction, the following was used: automated exposure control, adjustment of mA and/or kV according to patient size. COMPARISON: [facility], CT, CT ABDOMEN PELVIS WO CON, 05/12/2023, 9:54. [facility], US, US RENAL COMPLETE, 11/24/2023, 14:21. [facility], CT, CT KIDNEY URETER BLADDER (KUB), 11/05/2021, 13:51. FINDINGS: Image quality: Diagnostic. Lower Chest: No significant findings. URINARY: Right Kidney: Minimal to mild hydronephrosis decreased compared to prior. Multiple punctate stones are. There are 2 larger inferior pole renal stones. More anterior stone measures 1.53 cm Hounsfield units 1497. The more posterior stone measures 0.8 cm Hounsfield units 1618. Right Ureter: No hydroureter. Left Kidney: Multiple punctate stones are identified. Stone is identified within the renal pelvis measuring 1.3 cm Hounsfield units 1477, demonstrating forward advancement compared to prior exam.. Multiple inferior pole calcifications are identified largest measuring 1.5 cm Hounsfield units 1685. Mild hydronephrosis decreased compared to prior exam. Left Ureter: No hydroureter. Bladder: Normal wall thickness. No stones. ABDOMEN: Liver: No contour-deforming solid mass. Gallbladder: No radiopaque gallstones or wall thickening. Biliary ducts: No biliary dilation. Pancreas: No ductal dilation. Spleen: Size is within normal limits. Adrenal Glands: No adrenal nodules. Stomach and Bowel: Normal colonic caliber, without significant wall thickening. Peritoneum: No abnormal intraperitoneal fluid. No free air. Ventral Wall: No hernia. Abdominal Nodes: No enlarged retroperitoneal or mesenteric lymph nodes. Vessels: Aorta and inferior vena cava are normal in size. PELVIS: Pelvic Organs: Unremarkable. Pelvic Nodes: Unremarkable. Miscellaneous: No inguinal hernias are seen. Bones: Unremarkable. IMPRESSION: Persistent appearance calcifications within the kidneys. Overall appearance bilateral hydronephrosis, decreased compared to prior exam. No stones are identified within the ureters or bladder. Dictated by: Bina Syed M.D. on 01/11/2024 at 23:26 Approved by: Bina Syed M.D. on 01/11/2024 at 23:31
== END ==
PROVIDERS: PCP Family Medicine; Referring Provider Urology; Visit Provider Urology
DX: N13.30 Unspecified hydronephrosis (principal); N20.0 Calculus of kidney
CPT/HCPCS: 74176

== ENCOUNTER → 2024-08-04 11:27 | Outpatient (CLI) | payer MEDICARE, SELFPAY ==
[2017-08-19 04:11] VITALS: BMI 27.1
== END ==
LOC: LAB 11:27
PROVIDERS: PCP Family Medicine; Visit Provider Physician Assistant
DX: N39.0 Urinary tract infection, site not specified (principal)
CPT/HCPCS: 87077; 87086; 87186

== ENCOUNTER → 2024-08-25 11:21 | Outpatient (CLI) | payer MEDICARE, SELFPAY ==
[2017-08-19 04:11] VITALS: BMI 27.1
== END ==
PROVIDERS: PCP Family Medicine; Visit Provider Physician Assistant
DX: N30.01 Acute cystitis with hematuria (principal)
CPT/HCPCS: 87077; 87086

== ENCOUNTER 2024-08-31 11:09 | Emergency (ER) | payer MEDICARE, SELFPAY ==
[2017-08-19 04:11] VITALS: BMI 27.1
[2024-08-31 11:27] VITALS: BP 154/75; PULSE 78; RESP 16; TEMP 36.6; O2SAT 98; BMI 26.6
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
--- NOTE | 2024-08-31 11:48 | DI.CT.S_ITS ---
PROCEDURE: CT KIDNEY URETER BLADDER (KUB) INDICATIONS: suprapubic pain, dysuria, hx stones TECHNIQUE: Axial sections were acquired from the lung bases to the pubic symphysis. Coronal and sagittal reformats were performed. For radiation dose reduction, the following was used: automated exposure control, adjustment of mA and/or kV according to patient size. COMPARISON: [facility], CT, CT KIDNEY URETER BLADDER (KUB), 11/30/2019, 14:01. [facility], CT, CT KIDNEY URETER BLADDER (KUB), 01/11/2024, 15:53. FINDINGS: Image quality: Diagnostic. Lower Chest: No significant findings. URINARY: Right Kidney: Multiple parenchymal stones are present. The 2 largest stones are present in the lower pole, including an anterior lower pole stone measuring 0.9 x 1.0 cm with a Hounsfield measurement of 1252, and a posterior lower pole calyceal stone measuring 0.9 cm with a Hounsfield measurement of 1655. There is mild hydronephrosis. This is stable. No obstructing stone identified. Right Ureter: Mild proximal hydroureter, stable. No obstructing stone seen. Left Kidney: Multiple parenchymal stones are again noted. The largest stone is present in the lower pole measuring 1.2 cm in maximum diameter with a Hounsfield measurement of 1064.8. No hydronephrosis. Left Ureter: No hydroureter. Bladder: Mild posterior base of bladder wall thickening has developed. Reference current sagittal image 76 of series 5. Previous cystocele not identified currently. ABDOMEN: Liver: No contour-deforming solid mass. Gallbladder: No radiopaque gallstones or wall thickening. Biliary ducts: No biliary dilation. Pancreas: No ductal dilation. Spleen: Size is within normal limits. Adrenal Glands: No adrenal nodules. Stomach and Bowel: Normal colonic caliber, without significant wall thickening. Advanced sigmoid diverticulosis. No CT evidence of acute diverticulitis. Generalized diverticulosis. Peritoneum: No abnormal intraperitoneal fluid. No free air. Ventral Wall: No hernia. Abdominal Nodes: No enlarged retroperitoneal or mesenteric lymph nodes. Vessels: Aorta and inferior vena cava are normal in size. PELVIS: Pelvic Organs: Uterus is present. No adnexal masses.. Pelvic Nodes: Unremarkable. Miscellaneous: No inguinal hernias are seen. Bones: No lytic or blastic bony lesions. No compression fractures. Degenerative change with canal stenosis at L4-L5. IMPRESSION: 1. Numerous bilateral renal stones are present, a number of which are sizable. Size measurements and Hounsfield measurements as described above. 2. Mild right hydronephrosis and proximal right hydroureter, without obstructing stone, unchanged. 3. Development of mild posterior base of bladder thickening. 4. Lumbar degenerative change with canal stenosis at L4-L5. Comment: Recommend urological referral for consideration of cystoscopic evaluation of the bladder and potentially of the right ureter. Dictated by: Andrea Barr M.D. on 08/31/2024 at 12:03 Approved by: Andrea Barr M.D. on 08/31/2024 at 12:14
[2024-08-31 12:06] LABS: Appearance Urine UA CLOUDY; Bilirubin Urine UA NEGATIVE (NEGATIVE); Color Urine UA YELLOW; Glucose Urine UA NEGATIVE (Negative); Ketones Urine UA NEGATIVE (NEGATIVE); Leukocyte Esterase Urine UA 3+ (NEGATIVE); Nitrite Urine UA POSITIVE (Negative); Occult Blood Urine UA 2+ (Negative); Protein Urine UA 2+ (Negative); Specific Gravity Urine UA 1.015 (1.000-1.035); Urobilinogen Urine UA 0.2 E.U./dL (0.2)
[2024-08-31 12:07] LABS: pH Urine UA 5.5 (4.5-8.0)
[2024-08-31 12:09] LABS: Add Manual Diff / Slide Review NO; Hematocrit 45.3 % (36-46); Hemoglobin 15.5 g/dL (12.0-16.0); Lymphocytes Absolute Auto 1200 /uL (1100-4500); Mean Corpuscular HGB Conc 34.3 % (30-36); Mean Corpuscular Hemoglobin 31.5 PG (26-34); Mean Corpuscular Volume 91.9 fL (80-100); Platelet Count 223 X10^3/uL (150-400)
[2024-08-31 12:09] LABS: Culture Indicated Urine Specimen Cultured
[2024-08-31 12:14] LABS: Alanine Aminotransferase 23 IU/L (<35); Albumin 4.8 g/dL (3.5-5.0); Albumin Globulin Ratio 1.2 (1.0-2.8); Alkaline Phosphatase 105 U/L (38-126); Blood Urea Nitrogen 18 mg/dL (7-17); Calcium 9.4 mg/dL (8.4-10.2); Carbon Dioxide 19 mmol/L (22-32); Chloride 108 mmol/L (98-107); Estimated Glomerular Filt Rate > 60 mL/min (>60); Globulin 3.9 g/dL (1.7-4.1); Glucose 101 mg/dL (70-99); HEMOLYSIS 264 (0-50); Potassium 5.5 mmol/L (3.4-5.1); Sodium 137 mmol/L (137-145); Total Protein 8.7 g/dL (6.3-8.2)
[2024-08-31 12:36] VITALS: O2SAT 96
[2024-08-31 12:37] VITALS: BP 133/63; PULSE 60; O2SAT 96
[2024-08-31] MEDS: SODIUM CHLORIDE 0.9% 1,000 ML 500 ML IV (12:51)
== END 2024-08-31 13:50 | disposition home or self-care (01) ==
PROVIDERS: Emergency Provider Emergency Medicine; PCP Family Medicine
DX: N30.01 Acute cystitis with hematuria (principal); N13.2 Hydronephrosis with renal and ureteral calculous obstruction; Z87.440 Personal history of urinary (tract) infections
CPT/HCPCS: 36415; 74176; 80053; 81001; 85025; 87077; 87086; 87186; 96360; 99284

== ENCOUNTER → 2024-09-26 10:47 | Outpatient (CLI) | payer MEDICARE, SELFPAY ==
[2017-08-19 04:11] VITALS: BMI 27.1
== END ==
PROVIDERS: PCP Family Medicine; Visit Provider Urology
DX: N30.01 Acute cystitis with hematuria (principal)
CPT/HCPCS: 81002; 87077; 87086; 87186; 99214